=== PATIENT | male | born 1955 | race Caucasian/White ===

== ENCOUNTER 2017-11-17 11:57 | Outpatient (REF) | payer MEDICAID, SELFPAY ==
[2017-11-17 12:32] LABS: HCT 43.2 % (40.0-50.0); HGB 14.8 g/dL (13.5-17.5); Mean Corp. HGB Concentration 34.3 g/dL (32.0-36.0); Mean Corpuscular Hemoglobin 33.9 pg (27.0-33.0); Mean Corpuscular Volume 98.9 fL (80-95); Mean Platelet Volume 9.7 fL (8.0-11.0); Platelet Count 254 x1000/uL (130-400); RBC 4.37 m/cumm (4.50-6.00); RBC Distribution Width 12.9 % (11.8-14.1); White Blood Cell Count 5.21 k/cumm (4.4-10.8)
[2017-11-17 13:11] LABS: Anion Gap 7.7 mmol/L (3-11); BUN 16 mg/dL (7-18); CO2 26.3 mmol/L (21.0-32.0); CREATININE 0.88 mg/dL (0.70-1.30); Calcium 8.7 mg/dL (8.5-10.1); Chloride 102 mmol/L (98-107); Glucose 166 mg/dL (70-100); Potassium 4.2 mmol/L (3.5-5.1); Sodium 136 mmol/L (136-145)
== END 2017-11-17 12:17 ==
LOC: NCHCN 11:57
PROVIDERS: PCP Internal Medicine; Visit Provider Internal Medicine
DX: E11.9 Type 2 diabetes mellitus without complications (principal); I95.2 Hypotension due to drugs
CPT/HCPCS: 80048; 85027

== ENCOUNTER 2019-03-11 13:07 | Outpatient (REF) | payer MEDICAID, SELFPAY ==
[2019-03-11 22:18] LABS: Anion Gap 10.1 mmol/L (3-11); BUN 18 mg/dL (7-18); CO2 25.9 mmol/L (21.0-32.0); Chloride 104 mmol/L (98-107); Glucose 140 mg/dL (74-106); Potassium 4.6 mmol/L (3.5-5.1); Sodium 140 mmol/L (136-145); Uric Acid 6.2 mg/dL (3.5-7.2)
== END 2019-03-11 13:27 ==
LOC: NCHCN 13:07
PROVIDERS: PCP Internal Medicine; Visit Provider Internal Medicine
DX: E11.9 Type 2 diabetes mellitus without complications (principal); M10.9 Gout, unspecified; I47.1 Supraventricular tachycardia; I25.10 Atherosclerotic heart disease of native coronary artery without angina pectoris
CPT/HCPCS: 80048; 84550

== ENCOUNTER 2019-09-30 11:15 | Outpatient (REF) | payer MEDICARE, OTHER, MEDICAID, SELFPAY ==
[2019-09-30 21:19] LABS: Cholesterol 132 mg/dL (<200); Triglyceride 155 mg/dL (<150)
[2019-09-30 22:40] LABS: Calculated LDL 50 mg/dL (<100); HDL Cholesterol 51 mg/dL (40-60)
== END 2019-09-30 11:35 ==
LOC: NCHCN 11:15
PROVIDERS: PCP Internal Medicine; Visit Provider Internal Medicine
DX: E78.5 Hyperlipidemia, unspecified (principal)
CPT/HCPCS: 80061

== ENCOUNTER 2019-10-22 20:43 | Outpatient (REF) | payer MEDICARE, OTHER, MEDICAID, SELFPAY ==
[2019-10-22 21:18] LABS: Abs Immature Grans 0.02 10^3/uL (0.0-0.06); Absolute Basophil Count 0.03 10^3/uL (0.0-0.2); Absolute Eosinophil Count 0.14 10^3/uL (0.0-0.7); Absolute Lymphocyte Count 1.95 10^3/uL (1.2-3.4); Absolute Monocyte Count 0.89 10^3/uL (0.1-0.8); Absolute Neutrophil Count 4.07 10^3/uL (1.2-6.7); Basophils % 0.4; HCT 41.7 % (40.0-50.0); HGB 14.5 g/dL (13.5-17.5); Immature Grans % 0.3; Lymphocytes % 27.5; MCH 34.5 pg (27.0-33.0); MCHC 34.8 % (32.0-36.0); MCV 99.3 fL (80-95); MPV 10.1 fL (8.0-11.0); Monocytes % 12.5; Neutrophils % 57.3; Nucleated RBC 0 %; Platelet Count 270 10^3/uL (130-400); RDW 12.9 % (11.8-14.1); RDW-SD 46.8 fL
[2019-10-22 21:21] LABS: ALT 80 U/L (16-63); AST 36 U/L (15-37); Albumin 3.8 g/dL (3.4-5.0); Alkaline Phosphatase 77 U/L (46-116); Anion Gap 11.4 mmol/L (3-11); BUN 14 mg/dL (7-18); Bilirubin, Total 0.5 mg/dL (0.2-1.0); CO2 25.6 mmol/L (21.0-32.0); Calcium 9.3 mg/dL (8.5-10.1); Chloride 104 mmol/L (98-107); Creatine Kinase 134 U/L (39-308); Glucose 150 mg/dL (74-106); Potassium 4.1 mmol/L (3.5-5.1); Sodium 141 mmol/L (136-145); Total Protein 7.3 g/dL (6.4-8.2)
[2019-10-22 21:58] LABS: ESR 22 mm/hr (1-20)
[2019-10-24 15:10] LABS: ANA Interpretation Positive (Negative); ANA Titer Pattern 1:80 Homogeneous
== END 2019-10-22 21:03 ==
LOC: NCHCN 20:43
PROVIDERS: PCP Internal Medicine; Visit Provider Internal Medicine
DX: M79.604 Pain in right leg (principal); M79.605 Pain in left leg; M99.06 Segmental and somatic dysfunction of lower extremity; L98.9 Disorder of the skin and subcutaneous tissue, unspecified
CPT/HCPCS: 80053; 82550; 85652; 85025; 86038

== ENCOUNTER 2019-12-12 02:11 | Outpatient (CLI) | payer MEDICARE, OTHER, MEDICAID, SELFPAY ==
--- NOTE | 2019-12-12 14:27 | DI.CT_ITS ---
EXAM: CT LUMBAR SPINE WO CLINICAL HISTORY: RT LEG PAIN, M79.604, NEUROGENIC CLAUDICATION DUE TO SPINAL STENOSIS, M48.062. TECHNIQUE: Imaging Protocol: Axial computed tomography images with coronal and sagittal reformatted images were created and reviewed CONTRAST MATERIAL: Noncontrast COMPARISON: No exams were available for comparison FINDINGS: Bones: The last intervertebral disc space is designated the L5/S1 level for the numbering purpose of this examination. The vertebral body heights are well maintained. No fracture is seen. There are pr ominent degenerative disc changes, greatest on the left side at L2-3 and L3-4 where there are promine nt bridging osteophytes. There is asymmetric disc space narrowing eccentric toward the left at these levels. There is asymmetric disc space narrowing eccentric toward the right at L4-5. T12-L1: No disc herniations or bulges are present. L1-2: No disc herniations or bulges are present. L2-3: Severe left neural foraminal and lateral recess narrowing secondary to prominent osteophytes. No significant central canal stenosis. No evidence of disc herniation. L3-4: Moderate left neural foraminal narrowing. No significant central canal stenosis. L4-5: Severe right neural foraminal narrowing and lateral recess narrowing. Moderate left neural fo raminal narrowing. Posteriorly projecting osteophyte contributes to mild degree of central canal keren nosis. Facet degenerative changes are also present, contributing to the neural foraminal narrowing. L5-S1: Small disc osteophytes. Facet degenerative changes. Mild bilateral neural foraminal narrowi ng. Soft Tissues: The visualized SI joints and sacrum are will maintained. The paraspinal soft tissues a re unremarkable. Sigmoid diverticulosis is noted. There are atherosclerotic changes of the aorta an d iliac arteries but no evidence of an aneurysm. IMPRESSION: Multilevel prominent degenerative changes, greatest from L2-3 through L4-5, causing neural foraminal narrowing. Mild central canal stenosis is present at L4-5 secondary to a combination of degenerative changes. RADIATION DOSE DELIVERED: 821.21mGy.cm Total DLP DATA REPOSITORY: All CT scans at this facility are submitted to the National Radiology Data Registry (NRDR) Dose Index Registry (DIR) with the [employer] (ACR). RADIATION OPTIMIZATION: All CT scans at this facility use at least one of these dose optimization te chniques: automated exposure control; mA and/or kV adjustment per patient size (includes targeted exa ms where dose is matched to clinical indication); or iterative reconstruction.
== END 2019-12-12 02:31 ==
PROVIDERS: PCP Internal Medicine; Visit Provider Internal Medicine
DX: M79.604 Pain in right leg (principal); M48.062 Spinal stenosis, lumbar region with neurogenic claudication; M47.816 Spondylosis without myelopathy or radiculopathy, lumbar region
CPT/HCPCS: 72131

== ENCOUNTER 2020-06-24 11:26 | Outpatient (CLI) | payer MEDICARE, OTHER, MEDICAID, SELFPAY ==
--- NOTE | 2020-06-24 | DI.RAD_ITS ---
Exam(s) XR TIB/FIB RT EXAM: XR TIB/FIB RT CLINICAL HISTORY: PAIN, R/O METALLIC SHRAPNEL OR SPACE-OCCUPYING LESION. TECHNIQUE: 2D digital imaging was performed. COMPARISON: No exams were available for comparison FINDINGS: BONES: No acute fracture is present. No bony destructive lesion is seen. Visualized portion of knee a nd ankle joints are unremarkable. SOFT TISSUE: Surgical clips are seen posterior to the knee. Atherosclerosis. No other radiopaque fo reign bodies are seen in the soft tissues. IMPRESSION: Surgical clips posterior to the knee. No other radiopaque foreign bodies are identified. DATA REPOSITORY: RADIATION DOSE DELIVERED:
--- NOTE | 2020-06-24 | DI.RAD_ITS ---
Exam(s) XR KNEE RT 3V AP,LAT,MEAGAN EXAM: XR KNEE RT 3V AP,LAT,MEAGAN CLINICAL HISTORY: PAIN, R/O METALLIC SHRAPNEL OR SPACE-OCCUPYING LESION. TECHNIQUE: 2D digital imaging was performed. COMPARISON: CR CHEST 2 VIEWS PA,LAT from 05/20/2011 FINDINGS: Moderately severe degenerative changes are seen in the right knee with joint space narrowing and mynor articular spurring. The findings are most marked in the medial femoral tibial and patellofemoral ana cristina nts. The bones are intact and normally mineralized. No joint effusion is seen vascular calcificatio ns are present surgical clips are seen in the posterior medial knee. IMPRESSION: Moderately severe osteoarthritis. DATA REPOSITORY: RADIATION DOSE DELIVERED:
== END 2020-06-24 11:46 ==
PROVIDERS: PCP Internal Medicine; Visit Provider General Practice
DX: M79.604 Pain in right leg (principal); M25.561 Pain in right knee; M17.11 Unilateral primary osteoarthritis, right knee
CPT/HCPCS: 73562; 73590

== ENCOUNTER → 2020-08-12 09:16 | Outpatient (BNVA) | payer MEDICARE, OTHER, MEDICAID, SELFPAY | PROVIDERS: PCP Internal Medicine; Visit Provider Student in an Organized Health Care Education/Training Program | DX: S86.111A Strain of other muscle(s) and tendon(s) of posterior muscle group at lower leg level, right leg, initial encounter (principal); X58.XXXA Exposure to other specified factors, initial encounter; M17.11 Unilateral primary osteoarthritis, right knee | CPT/HCPCS: 99203 ==

== ENCOUNTER → 2020-10-06 10:55 | Outpatient (BNVA) | payer MEDICARE, OTHER, MEDICAID, SELFPAY | PROVIDERS: PCP Internal Medicine; Referring Provider Internal Medicine; Visit Provider Student in an Organized Health Care Education/Training Program | DX: M17.11 Unilateral primary osteoarthritis, right knee (principal); G57.31 Lesion of lateral popliteal nerve, right lower limb; I10 Essential (primary) hypertension; E11.9 Type 2 diabetes mellitus without complications | CPT/HCPCS: 99214 ==

== ENCOUNTER 2020-11-10 19:25 | Outpatient (REF) | payer MEDICARE, OTHER, MEDICAID, SELFPAY ==
[2020-11-10 22:02] LABS: Anion Gap 13.1 mmol/L (3-11); BUN 14 mg/dL (7-18); CO2 22.9 mmol/L (21.0-32.0); CREATININE 0.8 mg/dL (0.70-1.30); Calcium 8.9 mg/dL (8.5-10.1); Chloride 104 mmol/L (98-107); Glucose 183 mg/dL (74-106); Sodium 140 mmol/L (136-145)
== END 2020-11-10 19:26 | disposition home or self-care (01) ==
LOC: NCHCN 19:25
PROVIDERS: PCP Internal Medicine; Referring Provider Internal Medicine; Visit Provider Internal Medicine
DX: E11.9 Type 2 diabetes mellitus without complications (principal); I25.10 Atherosclerotic heart disease of native coronary artery without angina pectoris; M79.661 Pain in right lower leg; M10.9 Gout, unspecified; I73.9 Peripheral vascular disease, unspecified; Z95.0 Presence of cardiac pacemaker; Z86.010 Personal history of colon polyps
CPT/HCPCS: 80048

== ENCOUNTER → 2021-08-06 09:51 | Outpatient (BNVA) | payer MEDICARE, OTHER, MEDICAID, SELFPAY | PROVIDERS: PCP Internal Medicine; Referring Provider Internal Medicine; Visit Provider Physical Therapy Assistant | DX: Z80.0 Family history of malignant neoplasm of digestive organs (principal); Z12.11 Encounter for screening for malignant neoplasm of colon ==

== ENCOUNTER 2021-09-28 08:14 | Day surgery (SDC) | payer MEDICARE, OTHER, MEDICAID, SELFPAY ==
--- NOTE | 2021-09-27 16:15 | HPE_ITS ---
Assessment and Plan Assessment and plan (1) Family history of colon cancer: Status: Acute Assessment and plan: Informed consent is obtained for the procedural (explained in simple layman's terms that the pt. and/or family could understand) explaining risks vs benefits and alternatives to the procedure and consequences if we do not do the procedure and need/rational for the procedure. Risks include but are not limited to: bleeding, infection, perforation of esophagus, stomach, colon, small intestines, bronchus or trachea, or PTX. This would necessitate emergency surgery to repair the damage w/ possible ostomy; and other associated complications w/ the required surgery. Also complications of anesthesia including aspiration, MD/CVA/. (2) Screening for colon cancer: Status: Acute History of Present Illness Narrative: Assessment & Plan (1) Encounter for screening colonoscopy: The patient is here for Colonoscopy pre-op.?His last screening was in 2014, which was unremarkable. He has a family history of colon cancer in his father whom at the age of 67..?He has not had any bowel habit changes. -Discussed colonoscopy bowel prep as well as the procedure. Discussed possible complications of the procedure to include bleeding, pain, perforation, missed small lesion/polyp, sore throat, aspiration and adverse reaction to the medications. Questions were answered to patient?s satisfaction. No guarantees were implied or given. Patient[place] follow [place] [facility] [place], it is noted that his aortic valve is now moderately stenosed. They plan for TTE in 4-6 months to re-evaluate the valve. Echo: 01/2020- LVH, EF 60%. NmL RV Bioprosthetic aortic prosthesis mean gradient is 17mmHg. No regurg. Nuclear Stress Test 04/2021 No ischemia or scar, LV function was nml. Will send a note to anesthesia, to ensure okay to proceed with [place] given Cardiology recommendations of follow up on 05/11. Patient will hold: ASA and VItamin D x 5 days prior Metformin the evening prior and the morning of HPI 66 y/o male with history of CAD, s/p CABG (2008) , AVR (2008) and pace maker placement (2011; sick sinus syndrome), DM type 2, and PVD presents for colonoscopy screening pre-op. His last screening was in 2014, which was unremar kable. He has a family history of colon cancer in his father whom at the age of 67.. He denies any changes in bowel habits including bloody or black tarry stools, abdominal pain, diarrhea or constipation. He denies constitutional symptoms. Denies use of marijuana or any other recreational or illegal drugs. He denies chest pain, palpitations, dyspnea or dyspnea with exertion.? 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 He denies prior history or family history of adverse reactions or complications with anesthesia. The patient denies any history of stroke, MD, seizures, bleeding or clotting disorders.? Patient has implanted metal in his right lower leg and also has a pacemaker. Patient is here today for colon cancer screening. His father from colon cancer at age 67. Today: Patient completed a bowel prep last p.m. and the resulting effluent today is just a clear yellow. He currently is not having any abdominal pain or nausea. He feels bloated. He denies any chest pain/chest pressure, shortness of breath, productive cough, or fevers. He has held his aspirin. Since he saw [facility] in July, he has had no changes in his health status or change in his medications. Please see cardiology notes in epic. All questions are answered and patient is stable for the proposed procedure today. Pt did have a pacer interrigation and everything is functioning normally. PFSH All Active Problems Family history of colon cancer (Acute) Screening for colon cancer (Acute) Medical History Adenomatous colon polyp Bee sting allergy CAD (coronary artery disease) Diabetes Entrapment of common peroneal nerve Gout History of tobacco abuse Hx of myocardial infarction 2008 Hyperlipidemia Obesity Peripheral arterial disease Primary osteoarthritis of right knee PSVT (paroxysmal supraventricular tachycardia) Right calf pain Sick sinus syndrome Strain of right gastrocnemius muscle Type 2 diabetes mellitus Surgical History (Updated 09/28/21 @ 08:34 by Tomeka Vincent RN) History of open heart surgery S/P AVR 2009 Social History Smoking/Tobacco Use Status: Former Tobacco Use Quit Date: 02/20/06 Smoking risk assessment performed?: Yes Alcohol Intake: current Alcohol Intake frequency: a few times a week Drug use: Never Substance use type: does not use Current gender identity: male Do you feel safe at home: Yes Do you feel safe in your relationship?: Yes Meds Allergies and Home Medications Allergies Allergy/AdvReac Type Severity Reaction Status Date / Time venom-honey bee Allergy Intermediate Anaphylaxsi Unverified 09/28/21 08:35 [bee venom (honey bee)] s adhesive tape AdvReac Intermediate Infection Verified 09/28/21 08:35 prednisone AdvReac Intermediate Causes Verified 09/28/21 08:35 sugar spikes Home Medications Medication Instructions Recorded Confirmed Type Aspirin Low-Strength 81 mg 81 mg PO DAILY 09/27/12 09/28/21 History chewable tablet (aspirin) atorvastatin 40 mg tablet 40 mg PO DAILY 09/27/12 09/28/21 History allopurinol 100 mg tablet 200 mg PO DAILY 03/19/19 09/28/21 History amoxicillin 500 mg capsule 2,000 mg PO ONCE 03/19/19 09/28/21 History ketoconazole 2 % topical cream 1 applic topical BID 03/19/19 09/28/21 History blood sugar diagnostic #10 ea 08/12/20 09/27/21 History cholecalciferol (vitamin D3) 250 250 mcg PO DAILY 08/12/20 09/28/21 History mcg (10,000 unit) tablet lancets #100 ea 08/12/20 09/27/21 History metformin 500 mg tablet,extended 1,500 mg PO DAILY 08/12/20 09/28/21 History release 24 hr metoprolol succinate 100 mg 150 mg PO DAILY 08/12/20 09/28/21 History tablet,extended release 24 hr Exam Const Other: PHYSICAL EXAM GENERAL APPEARANCE: Alert, healthy appearance, oriented, in no acute distress SKIN: No rashes.? No breakdown HYDRATION: Well hydrated NECK: Supple, Trachea midline. No JVD. LUNGS: normal respiration/nl chest excursion. ?Clear to auscultation B/l no R/R/W ?HEART: Regular rate and rhythm, ABDOMEN: non tender to palpation, no masses or distention, no hernias. Normal bowel sounds
--- NOTE | 2021-09-27 16:20 | PDOC.DSDIS_ITS ---
Discharge Plan Disposition Patient Disposition: HOME Condition: Good Discharge Details Reason For Visit: Colon scope for colon cancer screening Attending Provider: Margarita Montilla Primary Care Provider: Low Durham Meds and New Rx's Prescriptions: Continued cholecalciferol (vitamin D3) 250 mcg (10,000 unit) tablet 250 mcg PO DAILY (DME) blood sugar diagnostic Strip See Rx Instructions .ROUTE .MEDSUPPLY Qty: 10 Rx Instructions: As directed (DME) lancets Misc See Rx Instructions .ROUTE .MEDSUPPLY Qty: 100 Rx Instructions: As directed atorvastatin 40 MG tablet 40 mg PO DAILY aspirin [Aspirin Low-Strength] 81 MG tablet,chewable 81 mg PO DAILY allopurinol 100 mg tablet 200 mg PO DAILY ketoconazole 2 % cream 1 applic TP BID amoxicillin 500 mg capsule 2,000 mg PO ONCE Rx Instructions: take 4 tablets 1 hour prior to dental procedures metoprolol succinate 100 mg tablet extended release 24 hr 150 mg PO DAILY metformin 500 mg tablet extended release 24 hr 1,500 mg PO DAILY Discontinued bisacodyl [Dulcolax (bisacodyl)] 5 mg tablet,delayed release (DR/EC) 5 mg PO ONCE Qty: 4 0RF Rx Instructions: Take according to provider's instructions for colonoscopy prep. polyethylene glycol 3350 17 gram/dose powder 17 g PO ONCE Qty: 238 0RF Rx Instructions: To be taken as directed by prescriber's office for colonoscopy prep. Discharge Instructions Additional Instructions: DSU Colonoscopy Post- Op Instructions Instructions for Everyone who is given Anesthesia: For your safety, please do the following for the next twenty-four (24) hours: *Do Not operate a motor vehicle (car, truck, motorcycle, etc.) *Do Not drink alcoholic beverages or use any recreational drugs for the first 24 hours or while taking pain medications. The medications in your body may have a reaction that can be dangerous. *Do Not make any important decisions or sign any important papers. Findings: Minor diverticular x2 polyps Follow up: My office will send a letter in 2 to 3 weeks time detailing as to what type of polyps they are and when we want you to repeat the colonoscopy. 1. No lifting over 20 pounds or strenuous activity for the first 24 hours after your procedure. After 24 hours there are no restrictions on your activity but you may feel fatigued for a few days. 2. After you arrive home you may have a light meal and return to your normal diet as you can tolerate it without feeling sick to your stomach. 3. You may have a bloated, gaseous feeling in your belly (abdomen) after a colonoscopy. Passing gas and belching will help. Walking or lying down on your left side with your knees flexed may relieve the discomfort. Call the office at [phone] (Office) or [phone] (Hospital) right away if you notice any of the following: a.Vomiting of blood or ?coffee ground stools?. b.Rectal bleeding 1Tbsp, blood clots or continuous bleeding. c.Severe belly (abdominal) pain. d.A hard distended belly (abdomen) and an inability to pass gas. 4. Please don?t expect to have a normal BM (bowel movement) for 2-3 days after your procedure. 5. If there are questions regarding the findings of your procedure, please contact your doctor 6. If you are unable to contact your doctor with a problem, contact the hospital at [phone]. 7. Continue all your regular medications unless directed otherwise. I understand the above instructions and have no questions. Signature of Patient or Adult Escort Name of Responsible Adult Escort Signature of Nurse Date/Time Activity:: See above Diet:: See above Discharge Orders Discharge Orders: Discharge Order (Routine); Ordered 09/27/21 Ordered By: Margarita Montilla DS: Diagnosis Discharge Diagnosis (1) Family history of colon cancer: Status: Acute (2) Screening for colon cancer: Status: Acute
--- NOTE | 2021-09-27 16:20 | W.PM.OP ---
Operative Note Operative Note Refer to Anesthesia Record
--- NOTE | 2021-09-27 16:22 | COLE_ITS ---
Colonoscopy Report Date of procedure: 09/28/21 Pre-op diagnosis general: Family history of colon cancer in a first-degree relat patrick Post-op diagnosis procedure note: other (Polyps and diverticula) Surgeon: Margarita Montilla Anesthesia Type: General:No Airway Estimated blood loss (mL): 1 Pathology: other Complications: None Disposition: same day Prep: Miralax/Dulcolax Retraction Time: 9 Procedure Description: After informed consent was obtained the patient was taken to the procedure room and placed in a left decubitous position. Monitors were applied and a time out was done. The patients name, date of , procedure, allergies to medications and metal in their body was reviewed. The patient was then sedated. Once sedated and comfortable a rectal exam was done. External exam was normal. Internal exam revealed a normal sphincter tone and no palpable masses. The p rostate mildly enlarged right lobe. The scope was then introduced and retrofelexed. No internal hemorrhoids were identified. The scope was then advanced to the cecum difficulty. The TI and appendiceal orifice were identified. The prep was BB PS 3 in all segments for a total of 9.. The scope was then slowly retracted over 9 minutes back into the rectum. He has minor diverticular disease confined to the sigmoid colon with no signs of active bleeding or infection. The mucosa is pink and healthy with a normal vascular pattern. He had x2 polyps at 40 cm they are both flat 5 mm polyps. They are both removed with cold biting forcep. All specimen is retrieved and no bleeding is noted.. The scope was removed and the patient was woken up and taken back to Same day surgery in stable condition. The patient tolerated the procedure well and there were no immediate complications. Follow up: The patient should follow up in 5 years unless they develop changes in bowel habits or other new gastrointestinal complaints.
[2021-09-28 08:25] VITALS: BP 131/88; PULSE 65; RESP 17; TEMP 36.5; O2SAT 98
[2021-09-28] MEDS: Lactated Ringers 1,000 ML 80 ML IV (08:46)
--- NOTE | 2021-09-28 09:42 | W.ANESPRE ---
General Info Date of Service Date Performed: 09/28/21 Height: 5 ft 11 in Weight: 92.9 kg Body Mass Index (BMI): 28.5 Surgical Procedure: Operation Date: 09/28/21 10:05 Proposed Procedure Side Surgeon cindy Montilla, Meds Allergies and Home Medications Allergies Allergy/AdvReac Type Severity Reaction Status Date / Time venom-honey bee Allergy Intermediate Anaphylaxsi Unverified 09/28/21 08:35 [bee venom (honey bee)] s adhesive tape AdvReac Intermediate Infection Verified 09/28/21 08:35 prednisone AdvReac Intermediate Causes Verified 09/28/21 08:35 sugar spikes Home Medication Medication Instructions Recorded Aspirin Low-Strength 81 mg 81 mg PO DAILY 09/27/12 chewable tablet (aspirin) atorvastatin 40 mg tablet 40 mg PO DAILY 09/27/12 allopurinol 100 mg tablet 200 mg PO DAILY 03/19/19 amoxicillin 500 mg capsule 2,000 mg PO ONCE 03/19/19 ketoconazole 2 % topical cream 1 applic topical BID 03/19/19 blood sugar diagnostic #10 ea 08/12/20 cholecalciferol (vitamin D3) 250 250 mcg PO DAILY 08/12/20 mcg (10,000 unit) tablet lancets #100 ea 08/12/20 metformin 500 mg tablet,extended 1,500 mg PO DAILY 08/12/20 release 24 hr metoprolol succinate 100 mg 150 mg PO DAILY 08/12/20 tablet,extended release 24 hr Current Visit Medications: Current Medications Generic Name Dose Route Start Last Admin Trade Name Freq PRN Reason Stop Dose Admin Hyoscyamine Sulfate 0.125 mg 09/27/21 16:20 Hyoscyamine 0.125 Mg Sl/Oral/Chew SL DIRECTED PRN Ringer's Solution 1,000 mls @ 80 mls/hr 09/28/21 06:00 09/28/21 08:46 IV 09/28/21 23:59 80 mls/hr INFUSION LIBAN Administration IV Miscellaneous Supplies 1 each 09/28/21 06:00 Iv Access IV 09/28/21 23:59 DIRECTED LIBAN Ondansetron HCl 4 mg 09/27/21 16:20 Ondansetron 4 Mg/2 Ml Vial IVP Q4H PRN PRN Nausea / Vomiting Sodium Chloride 0 ml 09/28/21 06:00 Normal Saline Flush 10 Ml Syr IV 09/28/21 23:59 PRN PRN Sodium Chloride 0 ml 09/28/21 06:00 Normal Saline 10 Ml Vial IJ 09/28/21 23:59 DIRECTED PRN Sterile Water 0 ml 09/28/21 06:00 Water,Injection,Sterile 10 Ml Vial IJ 09/28/21 23:59 DIRECTED PRN PFSH Active Problems Active Problems: Problem Status Onset Code Family history of colon cancer Z80.0 Screening for colon cancer Z12.11 Medical History Medical History Adenomatous colon polyp Bee sting allergy CAD (coronary artery disease) Diabetes Entrapment of common peroneal nerve Gout History of tobacco abuse Hx of myocardial infarction 2009 Hyperlipidemia Obesity Peripheral arterial disease Primary osteoarthritis of right knee PSVT (paroxysmal supraventricular tachycardia) Right calf pain Sick sinus syndrome Strain of right gastrocnemius muscle Type 2 diabetes mellitus Surgical History Surgical History (Updated 09/28/21 @ 08:34 by Tomeka Vincent RN) History of open heart surgery S/P AVR 2009 Tobacco Smoking/Tobacco Use Status: Former Tobacco Use Alcohol Alcohol Intake: current Alcohol intake frequency: a few times a week Substance Use Substance use: Never Substance use type: does not use Vital Signs and Lab Results Vital Signs Most Recent Vital Signs in EMR: Most Recent Vital Signs Temp Pulse Resp BP Pulse Ox 36.5 C 65 17 131/88 98 09/28/21 08:25 09/28/21 08:25 09/28/21 08:25 09/28/21 08:25 09/28/21 08:25 Point of Care Results Point of Care Results: Finger Stick Blood Glucose 158 09/28/21 08:53 Lab Results Blood Type / Crossmatch: No Data to Display Complete Blood Count: No Data to Display Complete Metabolic Panel: No Data to Display Liver Function Panel: No Data to Display Coagulation Panel: No Data to Display Cardiac Panel: No Data to Display Arterial Blood Gas: No Data to Display Venous Blood Gas: No Data to Display Pancreas Panel: No Data to Display Thyroid Panel: No Data to Display Infectious Disease: No Data to Display Blood Cultures: No Data to Display Toxicology Panel: No Data to Display Anesthesia Assessment and Plan Anesthesia History Personal History: No History of Anesthesia Complications Family History: No Family History of Anesthesia Complications Exercise Tolerance Exercise Tolerance: Metabolic Equivalents>4 Pertinent Negatives Pertinent Negatives: No Symptoms of GERD, No Major Cardiovascular Symptoms or Complaints ([place] 2009 CABG X 3 Aortic valve replacement (bovine), pacemaker Medtronic ) and No History of CVA/TIA Cardiac & Pulmonary Exam Cardiac Exam: Normal S1/S2 Heart Sounds Pulmonary Exam: Clear Bilateral Breath Sounds Implantable Cardiac Device Does patient have a Pacemaker or an ICD?: Yes 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[employer] Reason for Placement:: irregualirity and pauses of HR Date of Last Device Interrogation:: 3 weeks ago per pt Airway Exam Known Difficult Airway: No Mallampati Class: 2 Mouth Opening: Normal (> 3cm) Thyromental Distance: Greater than 3 cm Neck Range of Motion: Full ROM Neck Circumference: Thick Teeth Condition: Removable Dentures/Plates Upper (At home ) and Edentulous (TOP) Airway Comments: Edentulous top ( denture at home), bottom teeth solid, not chipped or broken ASA Classification ASA Score: ASA 2 Emergency Case?: No NPO Status NPO Status: NPO Clears >2 hours, Solids >8 hours Anesthesia Plan Resuscitation Status: Full Code Anesthesia Technique: General Anesthesia Airway Planned: Natural Airway Monitors Used: Standard Monitors
[2021-09-28 09:46] VITALS: BMI 28.5
--- NOTE | 2021-09-28 10:37 | BOWEL_PTH ---
PATIENT: Anatoliy Fuentes LOC: [facility] U#:[id number] AGE/SX: 66/M ROOM: RE09/28/[address]: Margarita Montilla : 1955 BED: DIS: 09/28/2021 SPEC #: [id number] RECD: 09/28/21 13:06 STATUS: NADIA RE #: [id number] EDUARDO: 09/28/21 10:[address]: Margarita Montilla DEPT: Surgical Specimen RECD BY: Olivia Alba ENTERED: 09/28/21 13:07 SP TYPE: Bowel OTHR DR: Low Durham Tissues: 1 - BIOPSY BOWEL Procedures: GROSS AND MICRO LEVEL 4 Comments: [id number]
[2021-09-28 10:48] VITALS: BP 96/65; PULSE 65; RESP 16; TEMP 36.5; O2SAT 95
[2021-09-28 11:08] VITALS: BP 111/68; PULSE 65; RESP 18; TEMP 36.6; O2SAT 94
--- NOTE | 2021-09-28 11:29 | W.ANESPOSTOP ---
Postoperative Evaluation Date, Time and Location Date Performed: 09/28/21 Time Performed: 11:08 Patient Location: Day Surgery Unit Vital Signs Most Recent Imported Vital Signs: Most Recent Vital Signs Temp Pulse Resp BP Pulse Ox 36.6 C 65 18 111/68 94 09/28/21 11:08 09/28/21 11:08 09/28/21 11:08 09/28/21 11:08 09/28/21 11:08 Pain Score Most Recent Pain Score: Most Recent Pain Score Pain Level 0 09/28/21 11:08 Assessment Mental Status: Awake (Alert & Oriented to Patient Baseline) Airway and Respiratory Function: Patent airway with normal (patient baseline) respiratory exam Cardiovascular Function: Hemodynamically Stable Hydration Status: Adequately Hydrated Nausea & Vomiting: No Nausea or Vomiting Pain: Pt. Denies Any Pain Peripheral Nerve Block: Patient did not receive a nerve block
== END 2021-09-28 11:42 | disposition home or self-care (01) ==
PROVIDERS: PCP Internal Medicine; Visit Provider Surgery
PROC: 0DJD8ZZ Inspection of Lower Intestinal Tract, Via Natural or Artificial Opening Endoscopic (ICD-10-PCS; CPT 45378; principal; 2021-09-28 10:00)
DX: Z12.11 Encounter for screening for malignant neoplasm of colon (principal); K63.5 Polyp of colon; Z80.0 Family history of malignant neoplasm of digestive organs; K57.30 Diverticulosis of large intestine without perforation or abscess without bleeding; E11.9 Type 2 diabetes mellitus without complications; I25.10 Atherosclerotic heart disease of native coronary artery without angina pectoris; Z95.1 Presence of aortocoronary bypass graft; I49.5 Sick sinus syndrome; Z95.0 Presence of cardiac pacemaker
CPT/HCPCS: 45380; 88305; J3490

== ENCOUNTER 2022-02-07 14:49 | Outpatient (REF) | payer MEDICARE, OTHER, MEDICAID, SELFPAY ==
[2022-02-07 15:18] LABS: Anion Gap 8.2 mmol/L (3-11); BUN 12 mg/dL (7-18); CO2 28.8 mmol/L (21.0-32.0); CREATININE 0.7 mg/dL (0.70-1.30); Calcium 9.5 mg/dL (8.5-10.1); Chloride 102 mmol/L (98-107); Estimated GFR 100.37 (mL/min/1.73m2); Glucose 102 mg/dL (74-106); Potassium 4.4 mmol/L (3.5-5.1); Sodium 139 mmol/L (136-145)
[2022-02-07 16:50] LABS: COMMENT (LAB VIEW ONLY) 67.03 mg/dL; Microalb ug/mg Crea 30.4 ug/mg Cr
== END 2022-02-07 14:50 | disposition home or self-care (01) ==
LOC: NCHCN 14:49
PROVIDERS: PCP Internal Medicine; Visit Provider Family Medicine
DX: I25.10 Atherosclerotic heart disease of native coronary artery without angina pectoris (principal); E11.9 Type 2 diabetes mellitus without complications
CPT/HCPCS: 80048; 82043; 82570

== ENCOUNTER → 2022-03-09 08:55 | Outpatient (BNVA) | payer MEDICARE, OTHER, MEDICAID, SELFPAY | PROVIDERS: PCP Internal Medicine; Referring Provider Internal Medicine; Visit Provider Physician Assistant | DX: Z95.0 Presence of cardiac pacemaker (principal); I49.5 Sick sinus syndrome | CPT/HCPCS: 93280; 99213 ==

== ENCOUNTER 2022-09-07 08:07 | Outpatient (CLI) | payer MEDICARE, OTHER, MEDICAID, SELFPAY ==
--- NOTE | 2022-09-07 08:00 | RT.EKG_ITS ---
APPROVED REPORT Exam: Resting ECG Reason for Exam: cardiac evaluation Patient Location: O HR:68 bpm ECG Measurements Heart Rate 68 AXIS OH 78 P [id number] QRSd 93 QRS -21 QT 406 T -35 QTc 432 Conclusion Atrial-paced complexes...other complexes also detected Borderline left axis deviation...QRS axis (-15,-29) Nonspecific repol abnormality, diffuse leads...ST dep, T flat/neg, ant/lat/inf Baseline wander in lead(s) V5,V6 I have reviewed and I agree with the emergency room physician's ECG interpretation.
== END 2022-09-07 08:08 | disposition home or self-care (01) ==
LOC: DI.CARD 08:07
PROVIDERS: PCP Internal Medicine; Visit Provider Physician Assistant
DX: I25.10 Atherosclerotic heart disease of native coronary artery without angina pectoris (principal); I49.5 Sick sinus syndrome; Z13.6 Encounter for screening for cardiovascular disorders
CPT/HCPCS: 93010

== ENCOUNTER → 2022-09-07 09:35 | Outpatient (BNVA) | payer MEDICARE, OTHER, MEDICAID, SELFPAY | PROVIDERS: PCP Internal Medicine; Referring Provider Internal Medicine; Visit Provider Physician Assistant | DX: Z45.010 Encounter for checking and testing of cardiac pacemaker pulse generator [battery] (principal); R42 Dizziness and giddiness | CPT/HCPCS: 93005; 93280; 99213 ==

== ENCOUNTER → 2022-12-15 02:54 | Outpatient (CLI) | payer MEDICARE, OTHER, SELFPAY ==
--- NOTE | 2022-12-15 08:15 | DI.US_ITS ---
APPROVED REPORT EXAM: Comprehensive 2D, Doppler, and color-flow Echocardiogram Patient Location: Out-Patient Colon [facility] Rectal Surgeon: Salvador Brooke RDCS (AE) Indications: PVCs, f/u, CAD, h/o bioprosthetic aortic valve replacement 2008 Conclusion Normal left ventricular wall thickness and chamber size. Ejection fraction is 50 to 55%. There are no segmental wall motion abnormalities Normal right ventricular size and function Left atrium is mildly dilated. Right atrial size is normal Device lead is noted in the right heart There is a bioprosthetic aortic valve replacement with a mean gradient of 27 mmHg. There is no aorti c regurgitation. Valve leaflets appear thickened Mitral annular calcification with moderate central mitral regurgitation Dilated aortic root and ascending aorta Wall motion Left Ventricle The left ventricle is normal size. Left ventricular systolic function is borderline. There is normal left ventricular wall thickness. There are no segmental wall motion abnormalities There is no ventric ular septal defect visualized. LVEF is 50-55%. Right Ventricle The right ventricle is normal size. Right ventricular systolic function is grossly normal. Unable to assess PA pressure. Pacemaker lead is present in the right ventricle. Atria The left atrium size is mildly dilated Right atrium is normal The interatrial septum is intact with n o evidence for an atrial septal defect. Aortic Valve Bioprosthetic aortic valve is present. Leaflets appear thickened Highest mean aortic valve gradient i s 26.77 mmHg. Peak aortic valve gradient is 42.44 mmHg. Calculated BRANDAN by the continuity equation is 0.7 cm2. No aortic regurgitation is present. Mitral Valve Mild mitral annular calcification. No evidence of mitral valve stenosis. Moderate mitral regurgitatio n. Tricuspid Valve The tricuspid valve is normal in structure. There is no tricuspid valve stenosis. Trace tricuspid reg urgitation. Pulmonic Valve The pulmonary valve is normal in structure. There is no pulmonic valvular stenosis. Trace pulmonic re gurgitation. Great Vessels Aortic root is moderately dilated. The ascending aorta is mildly dilated. Aortic arch is normal in ca liber. IVC is normal in size and collapses >50% with inspiration. Pericardium There is no pericardial effusion. 2D Dimensions IVSD d PLAX 1.44 cm M: 0.6-1.2 Ao Root d 4.16 cm M: 3.1 - 3.7 LVPW d PLAX 1.37 cm M: 0.6 - 1.2 Ao Asc Diam d 3.62 cm M: 2.6 - 3.4 LVID d PLAX 4.72 cm M: 4.2 - 5.8 LVDs 3.50 cm M: 2.5 - 4.0 LV EF Teichholz 50.8 % FS 25.83 % LV EDV (Teich) 103.4 mL LV ESV (Teich) 50.9 mL Stroke Vol Index (Teich) 24.20 Auto EF LV EDV A4C 117.1 mL LV EDV A2C 127.3 mL LV EDV BP 122.3 mL LV ESV A4C 57.5 mL LV ESV A2C 57.8 mL LV ESV BP 57.5 mL LVEF(%) A4C 50.9 % LVEF(%) A2C 54.6 % LVEF(%) BP 53.0 % LV SV A4C 59.6 ml LV SV A2C 69.5 ml LV SV BP 64.8 ml LV CO A4C 3.6 L/min LV CO A2C 3.9 L/min LV CO BP 3.8 L/min HR A4C 59.90 BPM HR A2C 56.77 BPM LV EDV Index (BP) LA Volume LA Length A4C 6.7 cm LA Length A2C LA Area A4C s 24.76 cm2 LA Area A2C s LA Vol A4C A-L 77.94 mL LA Vol A2C A-L LA Vol Biplane A-L LA Vol A4C MOD 73.3 mL LA Vol A2C MOD LA Vol BP MOD RA Volume RA Area A4C 12.5 cm2 RA ESV A4C (A-L) 22.7mL RA Vol/BSA A4C A-L RA Length A4C 5.9 cm RA ESV A4C (MOD) 21.9mL LV Diastology MV E' medial 0.042 (>0.07 m/s) MV E Vmax 0.65 (0.4-1.3 m/s) MV E/E' MED 15.42 (<14) MV A Vmax 0.60 (0.4-1.3 m/s) MV E' lateral 0.062 (>0.1 m/s) E/A Ratio 1.1 MV E/E' LAT 10.50 (<14) MV E' Average 0.052 m/s MV E/E'(average) 12.50 Aortic Valve AoV Vmax 3.26 m/s LVOT Vmax 0.79 m/s AoV Peak Grad 42.4 mmHg LVOT Peak Grad 2.5 mmHg AoV Area (Vmax) 0.73 cm2 LVOT VTI 0.165 m AoV VTI 0.750 m LVOT Mean Grad 1.2 mmHg AoV Mean Chris. 2.53 m/s LVOT SV 49.24 mL AoV Mean Grad 26.8 mmHg LVOT Diam s 1.95 cm AoV Area (VTI) 0.66 cm2 Velocity Ratio 0.24 Mitral Valve MV DT 144 (160-240 msec) Pulmonary Valve PV Vmax 1.00 (0.5-1.5 m/s) RVOT Vmax 0.45 m/s PV Peak Grad 4.0 mmHg RVOT Peak Gr. 0.8 mmHg PV Mean Chris 0.57 m/s RVOT VTI 0.095 m PV Mean Grad 1.6 mmHg RVOT Mean Gr. 0.5 mmHg
== END ==
PROVIDERS: PCP Internal Medicine; Visit Provider Physician Assistant
DX: I25.10 Atherosclerotic heart disease of native coronary artery without angina pectoris (principal)
CPT/HCPCS: 93306

== ENCOUNTER 2023-02-08 14:50 | Outpatient (REF) | payer MEDICARE, OTHER, SELFPAY ==
[2023-02-08 15:31] LABS: HCT 42.4 % (40.0-50.0); HGB 14.6 g/dL (13.5-17.5); MCH 32.7 pg (27.0-33.0); MCHC 34.4 % (32.0-36.0); MCV 95 fL (80-95); MPV 9.9 fL (8.0-11.0); Platelet Count 253 10^3/uL (130-400); RBC 4.46 10^6/uL (4.36-5.78); RDW 12.5 % (11.8-14.1); RDW-SD 43.3 fL; WBC 6.72 10^3/uL (4.4-10.8)
[2023-02-08 16:11] LABS: ALT 64 U/L (16-63); AST 38 U/L (15-37); Albumin 3.9 g/dL (3.4-5.0); Alkaline Phosphatase 76 U/L (46-116); Anion Gap 8.9 mmol/L (3-11); BUN 10 mg/dL (7-18); Bilirubin, Total 0.8 mg/dL (0.2-1.0); CO2 28.1 mmol/L (21.0-32.0); CREATININE 0.9 mg/dL (0.70-1.30); Calcium 9.5 mg/dL (8.5-10.1); Chloride 102 mmol/L (98-107); Estimated GFR 92.45 (mL/min/1.73m2); Glucose 148 mg/dL (74-106); Potassium 4.3 mmol/L (3.5-5.1); Sodium 139 mmol/L (136-145); Total Protein 8.3 g/dL (6.4-8.2)
== END 2023-02-08 14:51 | disposition home or self-care (01) ==
LOC: NCHCN 14:50
PROVIDERS: PCP Internal Medicine; Visit Provider Family Medicine
DX: E11.9 Type 2 diabetes mellitus without complications (principal); I25.10 Atherosclerotic heart disease of native coronary artery without angina pectoris
CPT/HCPCS: 80053; 85027

== ENCOUNTER → 2023-03-08 09:44 | Outpatient (BNVA) | payer MEDICARE, OTHER, SELFPAY | PROVIDERS: PCP Internal Medicine; Visit Provider Physician Assistant | DX: Z95.0 Presence of cardiac pacemaker (principal); I49.5 Sick sinus syndrome; I25.10 Atherosclerotic heart disease of native coronary artery without angina pectoris; R42 Dizziness and giddiness | CPT/HCPCS: 93280 ==

== ENCOUNTER → 2023-09-06 09:43 | Outpatient (BNVA) | payer MEDICARE, OTHER, SELFPAY | PROVIDERS: PCP Internal Medicine; Referring Provider Internal Medicine; Visit Provider Physician Assistant | DX: Z95.810 Presence of automatic (implantable) cardiac defibrillator (principal); I49.5 Sick sinus syndrome | CPT/HCPCS: 93280 ==

== ENCOUNTER 2023-11-21 21:40 | Outpatient (REF) | payer MEDICARE, OTHER, SELFPAY ==
[2023-11-21 22:09] LABS: COMMENT (LAB VIEW ONLY) 137.62 mg/dL; Microalb ug/mg Crea 14.2 ug/mg Cr
== END 2023-11-21 21:41 | disposition home or self-care (01) ==
LOC: NCHCN 21:40
PROVIDERS: PCP Internal Medicine; Visit Provider Family Medicine
DX: E11.9 Type 2 diabetes mellitus without complications (principal)
CPT/HCPCS: 82043; 82570

== ENCOUNTER 2024-03-06 08:01 | Outpatient (CLI) | payer MEDICARE, OTHER, SELFPAY | END 2024-03-06 08:02 | disposition home or self-care (01) | LOC: DI.CARD 08:01 | PROVIDERS: PCP Internal Medicine; Visit Provider Student in an Organized Health Care Education/Training Program | CPT/HCPCS: 93010 ==

== ENCOUNTER → 2024-03-06 10:21 | Outpatient (BNVA) | payer MEDICARE, SELFPAY | PROVIDERS: PCP Internal Medicine; Visit Provider Student in an Organized Health Care Education/Training Program | DX: Z95.810 Presence of automatic (implantable) cardiac defibrillator (principal); I49.5 Sick sinus syndrome | CPT/HCPCS: 93280 ==

== ENCOUNTER 2024-05-21 18:35 | Outpatient (REF) | payer MEDICARE, SELFPAY ==
[2024-05-21 21:30] LABS: HCT 43.2 % (40.0-50.0); HGB 14.6 g/dL (13.5-17.5); MCH 33.1 pg (27.0-33.0); MCHC 33.8 % (32.0-36.0); MCV 98 fL (80-95); MPV 10.2 fL (8.0-11.0); Platelet Count 242 10^3/uL (130-400); RBC 4.41 10^6/uL (4.36-5.78); RDW 12.7 % (11.8-14.1); RDW-SD 45.8 fL; WBC 5.97 10^3/uL (4.4-10.8)
[2024-05-21 21:40] LABS: ALT 65 U/L (16-63); AST 36 U/L (15-37); Albumin 3.8 g/dL (3.4-5.0); Alkaline Phosphatase 88 U/L (46-116); Anion Gap 9.5 mmol/L (3-11); BUN 11 mg/dL (7-18); Bilirubin, Total 0.5 mg/dL (0.2-1.0); CO2 27.5 mmol/L (21.0-32.0); CREATININE 0.9 mg/dL (0.70-1.30); Calcium 9.2 mg/dL (8.5-10.1); Chloride 104 mmol/L (98-107); Estimated GFR 91.88 (mL/min/1.73m2); Glucose 133 mg/dL (74-106); Potassium 4.4 mmol/L (3.5-5.1); Sodium 141 mmol/L (136-145); Total Protein 7.8 g/dL (6.4-8.2)
== END 2024-05-21 18:36 | disposition home or self-care (01) ==
LOC: NCHCN 18:35
PROVIDERS: PCP Family Medicine; Visit Provider Family Medicine
DX: Z00.00 Encounter for general adult medical examination without abnormal findings (principal)
CPT/HCPCS: 80053; 85027

== ENCOUNTER 2024-06-03 11:23 | Outpatient (CLI) | payer MEDICARE, SELFPAY ==
--- NOTE | 2024-06-03 | DI.RAD_ITS ---
Exam(s) XR SHOULDER RT COMPLETE 2+V EXAM: XR SHOULDER RT COMPLETE 2+V CLINICAL HISTORY: M25.511 Pain in RT shoulder. TECHNIQUE: 2D digital imaging was performed. Five views. COMPARISON: No exams were available for comparison FINDINGS: BONES: No acute fracture is present. No bony destructive lesion is seen. JOINTS: No dislocation present. Moderate spurring at the AC joint. Mild spurring at the margin of t he glenoid. Glenohumeral joint space is maintained. SOFT TISSUE: There is calcification superior to the humeral head consistent with calcific tendinosis of the supraspinatus. There is also additional calcification noted adjacent to the lesser tuberosity , also consistent with calcific tendinosis. IMPRESSION: Mild degenerative changes and calcific tendinosis. DATA REPOSITORY: RADIATION DOSE DELIVERED:
== END 2024-06-03 11:43 ==
LOC: DI 11:27
PROVIDERS: PCP Family Medicine; Visit Provider Family Medicine
DX: M25.511 Pain in right shoulder (principal); M75.31 Calcific tendinitis of right shoulder
CPT/HCPCS: 73030

== ENCOUNTER 2024-10-01 08:26 | Observation (INO) | payer MEDICARE, SELFPAY ==
[2024-10-01] VITALS (38 sets, daily range): BP systolic 98–134; BP diastolic 55–81; PULSE 56–91; RESP 14–33; TEMP 36.4–37.4; O2SAT 90–97
--- NOTE | 2024-10-01 08:15 | RT.EKG_ITS ---
APPROVED REPORT Exam: Resting ECG Reason for Exam: CHEST PAIN Patient Location: E HR:82 bpm ECG Measurements Heart Rate 82 AXIS OK [id number] P [id number] QRSd 123 QRS -52 QT 364 T 122 QTc 425 Conclusion Narrow complex rhythm, rate 82 AV dissociation, regular P waves with irregular QRS rhythm IVCD New ST depression and inverted T waves in anterolateral leads, new from priors No STEMI
--- NOTE | 2024-10-01 08:30 | DI.RAD_ITS ---
Exam(s) XR CHEST 2V PA LATERAL EXAM: XR CHEST 2V PA LATERAL aortic valve prosthesis. Pacemaker. CLINICAL HISTORY: Chest pain TECHNIQUE: 2D digital imaging was performed. Two views. COMPARISON: CR LEFT RIBS TO INCLUDE CXR from 03/31/2013 FINDINGS: HEART: Normal size. Aorta: Not dilated. PULMONARY VASCULATURE: Normal. MEDIASTINUM: Unremarkable. LUNGS: Clear. PLEURAL SPACE: No pleural effusion or pneumothorax. BONE:Unremarkable for age. SOFT TISSUES: Unremarkable. IMPRESSION: No acute abnormality. DATA REPOSITORY: RADIATION DOSE DELIVERED:
--- NOTE | 2024-10-01 08:36 | W.ED.GENAD ---
Discharge Plan Disposition Patient Disposition: Admit to [facility] Condition: Stable Discharge Details Clinical Impression: COVID-19 Admit Date/Time: 10/01/24 10:37 Admit Provider: Ephraim Mendoza Attending Provider: Ephraim Mendoza Primary Care Provider: Leobardo Tan ED Provider: Jennifer Purcell Discharge Data Discharge Date/Time-TO BE ENTERED AT DEPARTURE: 10/01/24 11:58 HPI General Date/Time Provider Initiated Documentation: 10/01/24 08:27. Limitations to Documentation: no limitations. Information obtained by: patient and RN notes reviewed. History of Present Illness 69 year old M presents to the emergency department with the chief complaint of SOB, CP, sore throat, described as moderate and similar to prior episodes, Quality is described as burning (sore throat), and is localized to the chest (CP wtih radiation to the BUE with exertion). Patient started experiencing this day(s) (acute symptoms x 4 days, SOB with exertion x 1yr) and it has been intermittent. Immobilization improves symptom(s), Movement worsens symptoms . Patient notes chest pain, fever/chills (per tmax 102), loss of appetite, malaise and shortness of breath; denies cough, diaphoresis, headaches, nausea/vomiting, rash and syncope. Patient did receive the following treatments prior to arrival, none Related Data Home Medications ?Medication ?Instructions ?Recorded ?Confirmed Aspirin Low-Strength 81 mg 81 mg PO DAILY 09/27/12 10/01/24 chewable tablet (aspirin) atorvastatin 40 mg tablet 40 mg PO DAILY 09/27/12 10/01/24 allopurinol 100 mg tablet 200 mg PO DAILY 03/19/19 10/01/24 amoxicillin 500 mg capsule 2,000 mg PO PRN 03/19/19 10/01/24 blood sugar diagnostic #10 ea 08/12/20 10/01/24 lancets #100 ea 08/12/20 10/01/24 metoprolol succinate 100 mg 50 mg PO BID 03/08/23 10/01/24 tablet,extended release 24 hr metformin 500 mg tablet,extended 1,000 mg PO BID 09/06/23 10/01/24 release 24 hr Allergies Allergy/AdvReac Type Severity Reaction Status Date / Time venom-honey bee (bee venom Allergy Intermediate Anaphylaxsi Verified 10/01/24 08:35 (honey bee)) s adhesive tape AdvReac Intermediate Infection Verified 10/01/24 08:35 prednisone AdvReac Intermediate Causes Verified 10/01/24 08:35 sugar spikes General Stated Complaint: Chest Pain MADHAVI: 3 Review of Systems Constitutional Constitutional: Reports as per HPI, Denies chills and Denies headache(s) Eyes Eyes: Denies change in vision ENT Ears, Nose, Mouth, and Throat: Denies dizziness and Denies headache(s) Cardiovascular Cardiovascular: Reports as per HPI Respiratory Respiratory: Reports as per HPI, Denies chest congestion, Denies cough, Denies pain on inspiration and Denies pain with cough Gastrointestinal Gastrointestinal: Reports as per HPI, Denies abdominal pain, Denies diarrhea, Denies nausea and Denies vomiting Genitourinary Genitourinary: Denies system reviewed and no additional complaints, except as documented (denies change in urinary habits) Musculoskeletal Musculoskeletal: Reports as per HPI and Denies back pain Integumentary/Breasts Skin/Breast: Reports as per HPI and Denies rash Neurologic Neurologic: Reports as per HPI, Denies dizziness and Denies headache(s) Exam Const General: cooperative, healthy appearing, comfortable, no acute distress and well developed Nutritional Appearance: average body habitus and well nourished Orientation: alert, awake and oriented x3 HENMT Head: normal to inspection Ears: hearing grossly normal bilaterally Mouth: moist mucous membranes Chest Chest: normal inspection of the chest, normal palpation of entire chest wall and no crepitus Resp Effort & Inspection: normal respiratory effort, able to speak in complete sentences and no respiratory distress Auscultation: clear to auscultation bilaterally, no rales, no rhonchi and no wheezes Cardio Rate: regular rate Rhythm: regular rhythm Heart Sounds: click and murmur GI Inspection: normal to inspection, no edema and non-distended Palpation: soft, no guarding and nontender Back/Spine/Pelvis Back: no CVA tenderness Skin General skin exam: no rashes or lesions noted Trauma: no lacerations or abrasions Neuro General: patient alert, patient awake and patient oriented x3 Cognition: normal cognition Speech: speech normal Gait: normal gait Extrem General: normal to inspection, capillary refill normal, no pedal edema, no calf tenderness and normal gait Course Vital Signs Vital signs: Vital Signs Temperature 37.4 C 10/01/24 08:28 Pulse 82 10/01/24 08:28 Respiratory Rate 18 10/01/24 08:28 Blood Pressure 127/81 10/01/24 08:28 Pulse Oximetry 96 10/01/24 08:28 Temperature 37.4 C 10/01/24 08:28 Temperature Source Oral 10/01/24 08:28 Pulse 82 10/01/24 08:28 Respiratory Rate 18 10/01/24 08:28 Blood Pressure 127/81 10/01/24 08:28 Pulse Oximetry 96 10/01/24 08:28 Medical Decision Making Patient is a pleasant 69-year-old male past medical history significant for CAD status post CABG, bioprosthetic AVR, sinus node dysfunction, dual-lead Medtronic Brenda pacer was placed in 2021, PAD, diabetes, tobacco use, hyperlipidemia, sick sinus syndrome, PSVT, presenting today with chief complaint of intermittent episodes of shortness of breath and chest pain. Patient is currently asymptomatic. Patient reports that he had intermittent shortness of breath and mild chest discomfort always associated with activity for the past year but that over the past week or so the symptoms have gotten significantly worse. Developed a sore throat about 4 days ago for which she reports has been using throat spray available [id number]. He denies any other recent change in his medications. He did have his device interrogated in August and there was concern for new underlying atrial fibrillation. Patient has not suffered any syncopal episodes. Denies any GI upset. He denies any tahmina weakness, no pain that goes into his back. He does state that when the pain is maximal, such as when he is trying to do outdoor activities, the pain can radiate to both of his shoulders. He does report that this feels like when he has had previous MIs in the past. On exam, patient appears nontoxic. He is hemodynamically stable. His cardiac exam is concerning for a systolic murmur with a click but patient does report that he has had an aortic valve replacement and also reports that he has had some leakiness to this valve. Patient is afebrile. I do not appreciate any any lesions on his fingers or toes that would suggest endocarditis. He does not have any rashes. Abdomen is benign. Posterior oropharynx is slightly red but no acute exudates does not appear suspicious for strep. Lungs are clear. Patient did become short of breath with ambulation into the bed. His oxygen is okay but with large amount of talking does drop down to around 90 to 91% on room air. Has not dropped below 90% while I am in the room with the patient.. My primary concern at this time is ACS given the patient's history as well as her progressive symptoms. It does sound that he has been having this anginal symptoms for the past year with exertion but that over the past 4 days and things have been significantly worse. The only thing has been new aside from the baseline chest pain and shortness of breath with exertion, has been the sore throat. augments that he did have a Tmax of 102 ?F at home intermittently for the past few days. This does increase my concern for potential endocarditis although the patient does not have any other outward signs to suggest this infection. However, with his history of valvular replacement did consider this on the differential. ECG was reviewed by attending, concerning for some ST depressions as well as likely atrial fibrillation although the QRS complexes are fairly regular. She is comparing to previous. No evidence to suggest a STEMI. Patient is positive for COVID-19. Discussed this with the patient and his family. Given the patient's comorbidities, likely patient will require admission. Labs were also reviewed. No leukocytosis with the patient does have a lymphocytopenia which is not surprising given his diagnosis of COVID-19. Coags were obtained as I was concerned for ACS initially. CMP without significant abnormality elevated is a slight elevation of his AST and ALT. A LDH was elevated at 269. CRP elevated at 1.038. BNP elevated at 1278. I do not have a prior BNP. Given my initial concern for cardiac dysfunction, did order this for further evaluation the patient does not appear frankly volume overloaded at this point. After discussion with patient family, it was decided that admission would be appropriate, particular given the significant shortness of breath he has with any type of exertion over the past few days and his comorbidities. With the patient having a positive COVID-19 diagnosis, which does explain the other symptomatology he is expressing, I do not feel that further evaluation or acute management for more emergent pathology such as endocarditis is appropriate at this point. No elevation in his troponin or delta troponin. Consulted with hospitalist. Patient given the first dose of remdesivir. They agree to admission. All his questions and concerns were addressed and they are in agreement this plan. PFSH All Active Problems (Updated 10/01/24 @ 16:01 by APPLE Macias) CAD (coronary artery disease) (Chronic) Diabetes (Chronic) Hyperlipidemia (Acute) Sore throat (Acute) COVID-19 (Acute) Episodic lightheadedness (Acute) Sinus node dysfunction (Acute) Adenomatous colon polyp (Acute ~09/28/21) tubular adenoma stoiber Family history of colon cancer (Acute) Screening for colon cancer (Acute) Medical History Hx of myocardial infarction 2009 Peripheral arterial disease Right calf pain Diabetes Entrapment of common peroneal nerve Strain of right gastrocnemius muscle Primary osteoarthritis of right knee CAD (coronary artery disease) History of tobacco abuse Hyperlipidemia Type 2 diabetes mellitus Sick sinus syndrome Gout PSVT (paroxysmal supraventricular tachycardia) Obesity Bee sting allergy Surgical History Pacemaker Medtronic Gracia pacemaker inserted 05/19/11 with generator change 11/16/21 History of colonoscopy (~09/2021) History of open heart surgery S/P AVR 2008 Social History Smoking/Tobacco Use Status: Former Tobacco Use Quit Date: 02/20/06 Smoking risk assessment performed?: Yes Alcohol Intake: current Alcohol Intake frequency: a few times a week Drug use: Never Substance use type: does not use Housing: house Current gender identity: male Do you feel safe at home: Yes Do you feel safe in your relationship?: Yes PAWSS Have you Been Recently Intoxicated or Drunk Within the Last 30 days?: No Have you Ever Experienced Previous Episodes of Alcohol Withdrawal?: No Have you ever Experienced Withdrawal Seizures?: No Have you ever Experienced Delirium Tremens(DT)s?: No Have you ever undergone Alcohol Rehabilitation Treatment (i.e, inpt ot outpatient treatment programs)?: No Have you ever Experienced Blackouts?: No Have you ever Combined Alcohol with other Downers within the last 90 days?: No Have you ever Combined Alcohol with any other Substance of Abuse during the last 90 days?: No Positive Blood Alcohol level on Presentation? [PCS.BAL]: No Evidence of Increased Autonomic Activity (i.e. HR>120, tremor, sweating, agitation, nausea)?: No Result: 0
[2024-10-01] MEDS: Aspirin 81 MG CHEW 324 MG CH (08:46)
[2024-10-01 08:58] LABS: Abs Immature Grans 0.02 10^3/uL (0.0-0.06); HCT 41.0 % (40.0-50.0); HGB 14.4 g/dL (13.5-17.5); Immature Grans % 0.4 %; MCH 33.6 pg (27.0-33.0); MCHC 35.1 % (32.0-36.0); MCV 96 fL (80-95); MPV 9.6 fL (8.0-11.0); Platelet Count 175 10^3/uL (130-400); RBC 4.28 10^6/uL (4.36-5.78); RDW 13.3 % (11.8-14.1); RDW-SD 47.3 fL; WBC 5.54 10^3/uL (4.4-10.8)
[2024-10-01 09:17] LABS: INR 1.1 (0.9-1.1); PTT Activated 28.4 sec (20.6-30.2); Prothrombin Time 11.0 sec (9.1-11.1)
[2024-10-01 09:42] LABS: ALT 97 U/L (16-63); AST 79 U/L (15-37); Albumin 3.6 g/dL (3.4-5.0); Alkaline Phosphatase 66 U/L (46-116); Anion Gap 10.0 mmol/L (3-11); BUN 16 mg/dL (7-18); Bilirubin, Total 0.8 mg/dL (0.2-1.0); CO2 25.0 mmol/L (21.0-32.0); Calcium 8.7 mg/dL (8.5-10.1); Chloride 99 mmol/L (98-107); Estimated GFR 72.22 (mL/min/1.73m2); Glucose 236 mg/dL (74-106); Magnesium 1.8 mg/dL (1.8-2.4); NT-proBNP 1278 pg/mL (<300); Potassium 4.0 mmol/L (3.5-5.1); Sodium 134 mmol/L (136-145); Total Protein 8.3 g/dL (6.4-8.2); Troponin I 28 ng/L (<or=76)
[2024-10-01 10:11] LABS: C-Reactive Protein 1.03 mg/dL (<or=0.5); LDH 269 U/L (85-227)
[2024-10-01 10:25] LABS: Troponin I 28 ng/L (<or=76)
--- NOTE | 2024-10-01 11:52 | W.PC.ACHO ---
Registration Status: REG ER Primary Language: Preferred Language: Urdu ED Information & Data Chief Complaint Chest Pain 10/01/24 08:52 Triage Note Patient complaining sore 10/01/24 08:28 throat, fatigue, SOB/CP for 4 days. Medical / Surgical History (Last Reviewed 02/14/23 @ 17:30 by APPLE Greenberg) Hx of myocardial infarction Peripheral arterial disease Right calf pain Diabetes Entrapment of common peroneal nerve Strain of right gastrocnemius muscle Primary osteoarthritis of right knee CAD (coronary artery disease) History of tobacco abuse Hyperlipidemia Type 2 diabetes mellitus Sick sinus syndrome Gout PSVT (paroxysmal supraventricular tachycardia) Obesity Bee sting allergy (Last Reviewed 02/14/23 @ 17:30 by APPLE Greenberg) Pacemaker History of colonoscopy (~09/2021) History of open heart surgery S/P AVR Most Recent Vital Signs Temperature 37.4 C 10/01/24 08:28 Temperature Source Oral 10/01/24 08:28 Pulse 60 10/01/24 11:45 Pulse 61 10/01/24 11:45 Respiratory Rate 24 10/01/24 11:45 Respiratory Effort Short of Breath 10/01/24 08:54 Respiratory Depth Normal 10/01/24 08:54 Respiratory Pattern Normal 10/01/24 08:54 Blood Pressure 72/56 L 10/01/24 11:31 Blood Pressure Mean 61 10/01/24 11:45 Pulse Oximetry 95 10/01/24 11:45 Pain Level 6 10/01/24 08:54 Allergies venom-honey bee (bee venom (honey bee)) Allergy (Intermediate, Verified 10/01/24 08:35) Anaphylaxsis adhesive tape Adverse Reaction (Intermediate, Verified 10/01/24 08:35) Infection prednisone Adverse Reaction (Intermediate, Verified 10/01/24 08:35) Causes sugar spikes Precautions Isolation Standard precaution 10/01/24 08:35 IV IV Catheter Type [Left Peripheral IV Antecubital] IV Catheter Gauge [Left 18 Antecubital] Diagnostics 10/01/24 10/01/24 10/01/24 Range/Units 11:35 09:33 08:40 WBC 5.54 (4.4-10.8) 10^3/uL RBC 4.28 L (4.36-5.78) 10^6/uL Hgb 14.4 (13.5-17.5) g/dL Hct 41.0 (40.0-50.0) % MCV 96 H (80-95) fL MCH 33.6 H (27.0-33.0) pg MCHC 35.1 (32.0-36.0) % RDW 13.3 (11.8-14.1) % Plt Count 175 (130-400) 10^3/uL MPV 9.6 (8.0-11.0) fL Immature Gran % 0.4 % Neutrophils % 76.8 % Lymphocytes % 13.4 % Monocytes % 9.2 % Eosinophils % 0.0 % Basophils % 0.2 % Nucleated RBC % 0.0 (0.0-0.3) % Absolute Neutrophils 4.26 (1.2-6.7) 10^3/uL Absolute Lymphocytes 0.74 L (1.2-3.4) 10^3/uL Absolute Monocytes 0.51 (0.1-0.8) 10^3/uL Absolute Eosinophils 0.00 (0.0-0.7) 10^3/uL Absolute Basophils 0.01 (0.0-0.2) 10^3/uL PT 11.0 (9.1-11.1) sec INR 1.1 (0.9-1.1) APTT 28.4 (20.6-30.2) sec Sodium 134 L (136-145) mmol/L Potassium 4.0 (3.5-5.1) mmol/L Chloride 99 (98-107) mmol/L Carbon Dioxide 25.0 (21.0-32.0) mmol/L Anion Gap 10.0 (3-11) mmol/L BUN 16 (7-18) mg/dL Creatinine 1.1 (0.70-1.30) mg/dL Est GFR (CKD-EPI 2020) 72.22 (mL/min/1.73m2) Glucose 236 H (74-106) mg/dL Calcium 8.7 (8.5-10.1) mg/dL Magnesium 1.8 (1.8-2.4) mg/dL Ferritin Pending Total Bilirubin 0.8 (0.2-1.0) mg/dL AST 79 H (15-37) U/L ALT 97 H (16-63) U/L Alkaline Phosphatase 66 (46-116) U/L Lactate Dehydrogenase 269 H (85-227) U/L Troponin I Pending 28 28 (<or=76) ng/L C-Reactive Protein 1.03 H (<or=0.5) mg/dL NT-Pro-B Natriuret Pep 1278 H (<300) pg/mL Total Protein 8.3 H (6.4-8.2) g/dL Albumin 3.6 (3.4-5.0) g/dL 10/01/24 08:47 Group A Streptococcus Culture - Pending Tonsil - Not Specified [id number] Documentation Fingerstick Glucose Start: 10/01/24 10:47 Freq: AC & HS Status: Active Protocol: Activity Type Activity Date Activity User E-sign Co-sign Detail Recorded Client Recorded Date Recorded By Document 10/01/24 11:07 WILMER [id number] 10/01/24 11:07 WILMER POC Strep Test-ALIA(Rapid) Start: 10/01/24 08:36 Freq: .Rapid Strep Test Status: Active Protocol: Activity Type Activity Date Activity User E-sign Co-sign Detail Recorded Client Recorded Date Recorded By Document 10/01/24 08:59 N.THEC [email or web address] 10/01/24 08:59 N.THEC Intake and Output - 24 Hour Total 10/01/24 08:26 thru 10/01/24 11:35 Intake Total 110 Balance 110 Weight 94.9 kg Intake: IV 110 Falls Risk Assessment History of Falls No History 10/01/24 08:59 Contributing Factors No Factors 10/01/24 08:59 Ambulatory Aids Independent 10/01/24 08:59 Tubes/Lines W/no contributing factors 10/01/24 08:59 Gait Evaluation No gait disturbance 10/01/24 08:59 Cognition No cognitive impairment 10/01/24 08:59 Fall Total Score 10 10/01/24 08:59 Level of Risk Standard/Low Risk 10/01/24 08:59 v v v v v v v v v Sending and/or Receiving Nurses: Please use comment section below to note any information pertinent to the patient hand-off not included above. Information / Comments: AOx3, independent, VSS, on RA. C/o SOB, sore throat. CP is in pacer site, behind sternum with and w/o radiation which is not new - has been like that for at least months. on telemetry AV paced w/HR in 60th. LAC 18G. Report received from: ALIZE Joaquin
[2024-10-01 12:16] LABS: Ferritin 207 ng/mL (26-388)
--- NOTE | 2024-10-01 12:16 | W.INDIABCONS ---
Date of service: 10/01/24 Time of Service: 12:00 Diabetes Inpatient Consult Reason for Visit: diabetes education DESCRIPTION/ASSESSMENT: brief visit with anirudh prior to discharge yesterday (10/02) and declined outpatient follow up for diabetes education. gave my card with contact info should he desire referral and come in for recommendations on any dietary approaches for diabetes mgt. Time Spent in Nutritional Counseling and Treatment: 5 min
[2024-10-01] MEDS: Insulin Aspart 300 UNITS/3 ML PEN SC ×2 (12:47→17:03)
--- NOTE | 2024-10-01 12:59 | W.PM.HP.N ---
Date of service: 10/01/24 Time of Service: 13:00 Assessment and Plan Assessment and plan (1) COVID-19: Status: Acute Assessment and plan: No empirical antibiotics: patient's presentation is mild/moderate without signs of bacterial infection. Antiviral therapy: Given his age and comorbidities, start remdesivir (he is within 7-day window) based on renal/hepatic profile and potential drug interactions. Started in ED - will continue. Monitor for disease progression: Watch for hypoxemia or respiratory decline; escalate to immunomodulatory therapy (e.g. abatacept/infliximab or vilobelimab if critical) in consultation with infectious disease as needed. Supportive care: Continue oxygen PRN -- currently no O2 requirement (no steroids given), DVT prophylaxis, hydration, and symptomatic treatment as needed. Continue aspirin 81 mg daily for CAD and bioprosthetic valve. Do not start or stop aspirin based solely on COVID-19 diagnosis. Use acetaminophen?as the preferred antipyretic, agent if NSAIDs are needed, use the lowest effective dose to minimize common adverse effects? Ensure venous thromboembolism prophylaxis is in place during hospitalization - enoxaparin 40 mg sc daily. Inhalers prn, no nebs (2) Diabetes: Status: Chronic Assessment and plan: Hold metformin during hospitalization due to acute illness and potential renal function changes. Initiate sliding scale insulin for inpatient glycemic control. Continue monitoring blood glucose before meals and at bedtime. Maintain diabetic and heart-healthy diet. A1c added on and pending (last at [facility] 7.0) (3) CAD (coronary artery disease): Status: Chronic Assessment and plan: EKG - HR ~ 80, regular, New ST depression and inverted T waves in anterolateral leads, new from priors. No STEMI (per cardiology read) Continue home meds - metoprolol ER 50 mg BID ; continue aspirin 81 mg daily, (4) Hyperlipidemia: Status: Acute Assessment and plan: Tchol 132 triglycerides 155 LDL 50 HDL 50 from 2020 - checking w [facility] if there are recent results - pending at time of writing. Continue statin - atorvastatin 40 mg daily (5) Sore throat: Status: Acute Assessment and plan: C/O sore throat - strep neg Cepacol shanita prn; chlorasceptic spay prn. Salt water gargles prn History of Present Illness History of Present Illness Chief Complaint: Exertional chest discomfort and shortness of breath Consults Consult date: 10/01/24 Requesting physician: Toribio Mccarthy Narrative: This is a pleasant 69-year-old male with significant cardiac history including CAD s/p CABG and bioprosthetic AVR (2008), sinus node dysfunction, and dual-lead Medtronic Gracia pacemaker with pulse generator replacement on 11/16/2021. 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 Over the past year, he has experienced intermittent exertional chest discomfort and dyspnea, which have worsened in the last week. Today, the patient presented to the [facility] ED with a sore throat that began 2 days ago, associated with mild nasal congestion, intermittent dry cough, and low-grade subjective fevers. He denies chest pain, palpitations, orthopnea, paroxysmal nocturnal dyspnea, or leg swelling. He notes mild fatigue and decreased activity tolerance, which he attributes in part to recent high ambient temperatures. He was afebrile, hemodynamically stable, and oxygen saturation was maintained on room air. Initial laboratory evaluation was notable for positive SARS-CoV-2 PCR, WBC within normal limits, and normal troponin. Strep swab negative. Basic metabolic panel unremarkable. Chest X-ray showed no acute cardiopulmonary process. HEART score calculated at 3 (low risk). Patient remained clinically stable throughout ED stay with no evidence of hypoxia or hemodynamic compromise. He was hydrated orally, monitored on telemetry, and remained asymptomatic from a cardiac standpoint. Patient was started on Remdesyvir. Patient is placed on observation status, on telemetry, on the medical floor for monitoring of vital signs and oxygen requirement. Patient is in agreement with plan of care. Patient is a full code. Review of Systems Narrative: Constitutional: No fever, chills, or weight loss. HEENT: Mild sore throat ?4 days, no dysphagia, odynophagia, hoarseness, oral ulcers, or nasal congestion. No ear pain. Cardiac: Exertional chest pain, no pain at rest, no palpitations, syncope, or orthopnea. Respiratory: Shortness of breath on exertion, no cough or wheezing. GI: No nausea, vomiting, abdominal pain, or changes in bowel habits. Neuro: No dizziness, weakness, or vision changes. MSK: No new joint pain or swelling. Skin: No rash. PFSH All Active Problems (Updated 08/12/25 @ 15:19 by Brittany Hazel NP) CAD (coronary artery disease) (Chronic) Diabetes (Chronic) Hyperlipidemia (Acute) Sore throat (Acute) COVID-19 (Acute) Episodic lightheadedness (Acute) Sinus node dysfunction (Acute) Adenomatous colon polyp (Acute ~09/28/21) tubular adenoma stoiber Family history of colon cancer (Acute) Screening for colon cancer (Acute) Medical History Hx of myocardial infarction 2008 Peripheral arterial disease Right calf pain Diabetes Entrapment of common peroneal nerve Strain of right gastrocnemius muscle Primary osteoarthritis of right knee CAD (coronary artery disease) History of tobacco abuse Hyperlipidemia Type 2 diabetes mellitus Sick sinus syndrome Gout PSVT (paroxysmal supraventricular tachycardia) Obesity Bee sting allergy Surgical History Pacemaker Medtronic Gracia pacemaker inserted 05/19/11 with generator change 11/16/21 History of colonoscopy (~09/2021) History of open heart surgery S/P AVR 2008 Social History Smoking/Tobacco Use Status: Former Tobacco Use Quit Date: 02/20/06 Smoking risk assessment performed?: Yes Alcohol Intake: current Alcohol Intake frequency: a few times a week Drug use: Never Substance use type: does not use Housing: house Current gender identity: male Do you feel safe at home: Yes Do you feel safe in your relationship?: Yes Meds Allergies and Home Medications Allergies Allergy/AdvReac Type Severity Reaction Status Date / Time venom-honey bee (bee venom Allergy Intermediate Anaphylaxsi Verified 10/01/24 08:35 (honey bee)) s adhesive tape AdvReac Intermediate Infection Verified 10/01/24 08:35 prednisone AdvReac Intermediate Causes Verified 10/01/24 08:35 sugar spikes Home Medications ?Medication ?Instructions ?Recorded ?Confirmed ?Type Aspirin Low-Strength 81 mg 81 mg PO DAILY 09/27/12 10/01/24 History chewable tablet (aspirin) atorvastatin 40 mg tablet 40 mg PO DAILY 09/27/12 10/01/24 History allopurinol 100 mg tablet 200 mg PO DAILY 03/19/19 10/01/24 History amoxicillin 500 mg capsule 2,000 mg PO PRN 03/19/19 10/01/24 History blood sugar diagnostic #10 ea 08/12/20 10/01/24 History lancets #100 ea 08/12/20 10/01/24 History metoprolol succinate 100 mg 50 mg PO BID 03/08/23 10/01/24 History tablet,extended release 24 hr metformin 500 mg tablet,extended 1,000 mg PO BID 09/06/23 10/01/24 History release 24 hr Exam Narrative Exam Narrative: General: Well-appearing, no acute distress. HEENT: Mild pharyngeal erythema, no exudates. Neck: No JVD, no carotid bruits. Cardiac: Regular rate/rhythm, no murmurs, rubs, or gallops. Pacemaker site intact. Lungs: Clear bilaterally, no rales/wheezes. Abdomen: Soft, nontender, nondistended. Extremities: No edema, 2+ distal pulses. Neuro: Alert, oriented ?3, no focal deficits. Skin: Warm, dry, intact. Results Labs 10/01/24 08:40 10/01/24 08:40 Labs: Laboratory Results - last 24 hr 10/01/24 10/01/24 10/01/24 08:40 09:33 11:35 WBC 5.54 RBC 4.28 L Hgb 14.4 Hct 41.0 MCV 96 H MCH 33.6 H MCHC 35.1 RDW 13.3 Plt Count 175 MPV 9.6 Immature Gran % 0.4 Neutrophils % 76.8 Lymphocytes % 13.4 Monocytes % 9.2 Eosinophils % 0.0 Basophils % 0.2 Nucleated RBC % 0.0 Absolute Neutrophils 4.26 Absolute Lymphocytes 0.74 L Absolute Monocytes 0.51 Absolute Eosinophils 0.00 Absolute Basophils 0.01 PT 11.0 INR 1.1 APTT 28.4 Sodium 134 L Potassium 4.0 Chloride 99 Carbon Dioxide 25.0 Anion Gap 10.0 BUN 16 Creatinine 1.1 Est GFR (CKD-EPI 2020) 72.22 Glucose 236 H Calcium 8.7 Magnesium 1.8 Ferritin 207 Total Bilirubin 0.8 AST 79 H ALT 97 H Alkaline Phosphatase 66 Lactate Dehydrogenase 269 H Troponin I 28 28 Cancelled C-Reactive Protein 1.03 H NT-Pro-B Natriuret Pep 1278 H Total Protein 8.3 H Albumin 3.6 Last Vital Signs Temp 36.8 C 10/01/24 12:08 Pulse 62 10/01/24 12:08 Resp 14 10/01/24 12:08 BP 122/78 10/01/24 12:08 Pulse Ox 96 10/01/24 12:08 PAWSS Have you Been Recently Intoxicated or Drunk Within the Last 30 days?: No Have you Ever Experienced Previous Episodes of Alcohol Withdrawal?: No Have you ever Experienced Withdrawal Seizures?: No Have you ever Experienced Delirium Tremens(DT)s?: No Have you ever undergone Alcohol Rehabilitation Treatment (i.e, inpt ot outpatient treatment programs)?: No Have you ever Experienced Blackouts?: No Have you ever Combined Alcohol with other Downers within the last 90 days?: No Have you ever Combined Alcohol with any other Substance of Abuse during the last 90 days?: No Positive Blood Alcohol level on Presentation? [PCS.BAL]: No Evidence of Increased Autonomic Activity (i.e. HR>120, tremor, sweating, agitation, nausea)?: No Result: 0 Time Spent Time spent with Patient: 40-54 minutes Time was spent: preparing to see the patient(eg.review tests), obtaining and/or reviewing separately otained hiistory, ordering medications,tests, procedures, referring, communicating with other health attending ambulatory care, indepentently interpreting results, counseling the patient and care coordination
[2024-10-01] MEDS: Acetaminophen 325 MG TAB 650 MG PO (13:36)
[2024-10-01] MEDS: Benzocaine/Menthol LOZG 15/BOX 1 EACH SUC (13:37)
--- NOTE | 2024-10-01 14:34 | PHA.REVIEW2 ---
Pharmacy Admission Review Admission Clinical Review Admission Pharmacy Review: COVID-19 (Acute) venom-honey bee (bee venom (honey bee)) Allergy (Intermediate, Verified 10/01/24 08:35) Anaphylaxsis adhesive tape Adverse Reaction (Intermediate, Verified 10/01/24 08:35) Infection prednisone Adverse Reaction (Intermediate, Verified 10/01/24 08:35) Causes sugar spikes Resuscitation Status Full Code Height 5 ft 11 in Weight 94.12 kg Pharmacy Admission Review Renal Dosing Renal Dosing: BUN 16 mg/dL (7-18) 10/01/24 08:40 Creatinine 1.1 mg/dL (0.70-1.30) 10/01/24 08:40 Medications needing adjustments: Reviewed (CrCl 73.21 mL/min) List of meds needing interventions: Current medications are okay Anticoagulation Anticoagulation: Hgb 14.4 g/dL (13.5-17.5) 10/01/24 08:40 Hct 41.0 % (40.0-50.0) 10/01/24 08:40 Plt Count 175 10^3/uL (130-400) 10/01/24 08:40 INR 1.1 (0.9-1.1) 10/01/24 08:40 Creatinine 1.1 mg/dL (0.70-1.30) 10/01/24 08:40 DVT Prophylaxis: Reviewed Medications: Enoxaparin (40mg daily) Relevant Labs Relevant Labs: Sodium 134 mmol/L (136-145) L 10/01/24 08:40 Potassium 4.0 mmol/L (3.5-5.1) 10/01/24 08:40 Chloride 99 mmol/L (98-107) 10/01/24 08:40 Magnesium 1.8 mg/dL (1.8-2.4) 10/01/24 08:40 C-Reactive Protein 1.03 mg/dL (<or=0.5) H 10/01/24 09:33 Electrolytes, C-Reactive P, ESR: Reviewed (AST/ALT 79/97) DM Control DM Control: Glucose 236 mg/dL (74-106) H 10/01/24 08:40 Finger Stick Blood Glucose 176 1247 Finger Stick Blood Glucose 176 1152 Finger Stick Blood Glucose 176 1152 Finger Stick Blood Glucose 176 1130 Finger Stick Blood Glucose 174 1107 Finger Stick Blood Glucose 174 1106 Finger Stick Blood Glucose 174 1106 DM Control: Reviewed Insulin Dosing, Diabetic Medication: Has order for SS insulin Cardiac Review Cardiac Review: Troponin I Cancelled 10/01/24 11:35 NT-Pro-B Natriuret Pep 1278 pg/mL (<300) H 10/01/24 08:40 BP, HR, EF%: Reviewed (BP and HR WNL) List meds needing interventions: Has order for metoprolol 50mg XL BID QTc Review QTc: Reviewed (425 from 10/01/24) IV to PO Switch IV Medications: Reviewed (remdesivir) Home Meds Home Med List reviewed: Intervened Relevent Home Meds Not ordered & why?: amoxicillin (for dental procedures) and metformin Called nurse to verify with patient their home metoprolol dose. Home med list says 50mg XL BID but prescription from external fill history says 75mg QAM and 50mg QPM. Per nurse patient reports taking 50mg BID. Current Meds Current Medication Order Review: Intervened Comments: Added IV admission access order Patient is on remdesivir, day 1, for COVID-19 Pharmacy Antibiotic Review Relevant Labs: Relevant Labs 10/01/24 09:33 Lactate Dehydrogenase 269 H C-Reactive Protein 1.03 H
[2024-10-01 15:15] LABS: Hemoglobin A1C 6.7 % (<5.7)
[2024-10-01] MEDS: Chloraseptic Spray 117 ML BTL MM (16:08)
[2024-10-01 16:52] LABS: Lab Add On Test DONE
[2024-10-01] MEDS: Metoprolol CR 50 MG TABCR PO (21:06)
[2024-10-01] MEDS: Normal Saline Flush 10 ML SYR IVP (21:06)
[2024-10-01] MEDS: Melatonin 3 MG TAB 9 MG PO (22:04)
[2024-10-02 03:20] VITALS: BP 117/75; PULSE 66; RESP 16; TEMP 36.6; O2SAT 98
[2024-10-02 06:42] LABS: Abs Immature Grans 0.01 10^3/uL (0.0-0.06); HCT 39.7 % (40.0-50.0); HGB 13.7 g/dL (13.5-17.5); Immature Grans % 0.3 %; MCH 33.3 pg (27.0-33.0); MCHC 34.5 % (32.0-36.0); MCV 96 fL (80-95); MPV 9.6 fL (8.0-11.0); Platelet Count 163 10^3/uL (130-400); RBC 4.12 10^6/uL (4.36-5.78); RDW 13.2 % (11.8-14.1); RDW-SD 47.6 fL; WBC 3.98 10^3/uL (4.4-10.8)
[2024-10-02 07:12] LABS: Anion Gap 7.5 mmol/L (3-11); BUN 19 mg/dL (7-18); C-Reactive Protein 2.62 mg/dL (<or=0.5); CO2 25.5 mmol/L (21.0-32.0); Calcium 8.4 mg/dL (8.5-10.1); Chloride 103 mmol/L (98-107); Estimated GFR 91.88 (mL/min/1.73m2); Glucose 160 mg/dL (74-106); Magnesium 1.9 mg/dL (1.8-2.4); Potassium 3.8 mmol/L (3.5-5.1); Sodium 136 mmol/L (136-145)
[2024-10-02 08:13] VITALS: BP 118/71; PULSE 60; RESP 14; TEMP 36.6; O2SAT 93
[2024-10-02] MEDS: Enoxaparin 40 MG/0.4 ML SYR SC (08:14)
[2024-10-02] MEDS: Normal Saline Flush 10 ML SYR IVP (08:15)
[2024-10-02] MEDS: Atorvastatin 40 MG TAB PO (08:15)
[2024-10-02] MEDS: Metoprolol CR 50 MG TABCR PO (08:15)
[2024-10-02] MEDS: Aspirin 81 MG CHEW PO (08:15)
[2024-10-02] MEDS: Allopurinol 100 MG TAB 200 MG PO (08:15)
[2024-10-02 09:49] VITALS: O2SAT 93
[2024-10-02] MEDS: REMDESIVIR 100 MG in Normal Saline 250 ML 250 MG IVPB (10:07)
[2024-10-02 11:24] LABS: Calculated LDL 30 mg/dL (<100); Cholesterol 80 mg/dL (<200); HDL Cholesterol 42 mg/dL (>or=40); Triglyceride 41 mg/dL (<150)
--- NOTE | 2024-10-02 11:37 | PDOC.CMDIS ---
Date of service: 10/02/24 Time of Service: 12:30 LACE Index Scoring Tool Questions: Length of Stay (in days): 1 Was the patient admitted via the E.D.?: Yes E.D. Visits: 1 Answers: Total Score: 5 Risk of Readmission: Low Risk Care Management Discharge Plan Reason for Hospitalization: Covid Discharge Plan: Anatoliy is discharged home via private vehicle with family. Patient will follow up with his PCP and discharge plan of care as directed. No new services were ordered before discharge. Patient/Family Education Needs: Review discharge instructions and plan to follow up after discharge. Discuss ask me three.
[2024-10-02] MEDS: Insulin Aspart 300 UNITS/3 ML PEN SC (11:41)
--- NOTE | 2024-10-02 12:31 | PDOC.CMIN ---
Date of service: 10/02/24 Time of Service: 12:31 Care Management Initial Assmt Functional Status/Living Situation Town of Residence: [place] Employment Status: Retired Instrumental Activities of Daily Living (ADLs): Independent Medications Medication Management: No Issues/Barriers identified Advance Directives Advance Directives: Do you have an Advance Directive: Y 01/18/21, 14:10 AD On File at [facility]: Y 01/18/21, 14:10 Date Asked 05/21/24 05/21/24, 14:18 AD Date Reviewed 10/01/24 10/01/24, 08:33 COLST On File at [facility] COLST Date Scanned Code Status Resuscitation Status Full Code Insurance Coverage/Financial Issues Insurance: [employer] Medicare Replacement - [id number] Care Team Visit Care Team Role Provider Type Brittany Hazel NP MD [facility] STAFF PHYSICIAN Leobardo Tan MD Primary Care Provider NON-[facility] STAFF PHYSICIAN Denice Brand, [facility], [facility] Other Providers [employer] Drew Gomes RDN Other Providers [employer] APPLE Macias Emergency Provider PHYSICIANS ASSISTANT Ephraim Mendoza MD Admit Provider [facility] STAFF PHYSICIAN Attending Provider Discharge Anticipated Barriers to Discharge: None Identified Patient/Family Education Needs: Review discharge instructions, discuss Ask Me Three Social Determinants of Health Screening Social Determinants of health last assessed in clinic: 10/01/24 Will the Patient Participate in the Screening?: Yes Do you worry about having a steady place to live?: no Problems where you live: no known problems In the past 12 months, have you had to go without electric, gas, oil or water in your home?: no Has lack of transportation kept you from medical appointments or from doing things needed for daily living?: no Has anyone in your life made you feel unsafe or unsupported?: no How hard is it for you to pay for the very basics like food, housing, medical care, and heating? Would you say it is:: Not hard at all Do you want help finding or keeping work or a job?: I do not need or want help If for any reason you need help with day-to-day activities such as bathing, preparing meals, shopping, managing finances, etc., do you get the help you need?: I don?t need any help How often do you feel lonely or isolated from those around you?: Never Do you speak a language other than Latvian at home?: No Does the patient want assistance with any of the above?: No PFSH All Active Problems (Updated 10/01/24 @ 16:01 by APPLE Macias) CAD (coronary artery disease) (Chronic) Diabetes (Chronic) Hyperlipidemia (Acute) Sore throat (Acute) COVID-19 (Acute) Episodic lightheadedness (Acute) Sinus node dysfunction (Acute) Adenomatous colon polyp (Acute ~09/28/21) tubular adenoma stoiber Family history of colon cancer (Acute) Screening for colon cancer (Acute) Medical History Hx of myocardial infarction 2009 Peripheral arterial disease Right calf pain Diabetes Entrapment of common peroneal nerve Strain of right gastrocnemius muscle Primary osteoarthritis of right knee CAD (coronary artery disease) History of tobacco abuse Hyperlipidemia Type 2 diabetes mellitus Sick sinus syndrome Gout PSVT (paroxysmal supraventricular tachycardia) Obesity Bee sting allergy Surgical History Pacemaker Medtronic Gracia pacemaker inserted 05/19/11 with generator change 11/16/21 History of colonoscopy (~09/2021) History of open heart surgery S/P AVR 2008 Social History Smoking/Tobacco Use Status: Former Tobacco Use Quit Date: 02/20/06 Smoking risk assessment performed?: Yes Alcohol Intake: current Alcohol Intake frequency: a few times a week Drug use: Never Substance use type: does not use Housing: house Current gender identity: male Do you feel safe at home: Yes Do you feel safe in your relationship?: Yes
--- NOTE | 2024-10-02 12:38 | DSE_ITS ---
Date of service: 10/02/24 Time of Service: 12:39 DS: Diagnosis Discharge Diagnosis (1) COVID-19: Status: Acute (2) Diabetes: Status: Chronic (3) CAD (coronary artery disease): Status: Chronic (4) Hyperlipidemia: Status: Acute (5) Sore throat: Status: Acute Discharge Plan Disposition Patient Disposition: Home Condition: Improving Discharge Details Reason For Visit: Covid 19 Admit Date/Time: 10/01/24 10:37 Admit Provider: Ephraim Mendoza Attending Provider: Ephraim Mendoza Primary Care Provider: Leobardo Tan Hospital Course Hospital Course: Reason for Admission 69-year-old male with extensive cardiac history presented with sore throat ?2 days, mild nasal congestion, intermittent dry cough, and low-grade subjective fever. Found SARS-CoV-2 positive in ED. No hypoxia or hemodynamic instability at presentation. Admitted for monitoring and initiation of antiviral therapy given age and comorbidities. Pertinent Hospital Course * COVID-19: SARS-CoV-2 PCR positive. No bacterial coinfection; strep negative. No oxygen requirement during admission. Started on remdesivir in ED, completed 2 doses inpatient. No steroids indicated. Supportive care provided. * CAD: History of CABG, AVR, and pacemaker. EKG with new anterolateral ST depression/T wave inversion but no STEMI. Troponins negative. Continued aspirin 81 mg daily and metoprolol ER 50 mg BID. Remained chest pain?free during stay. * Hyperlipidemia: Continued atorvastatin 40 mg daily. * Type 2 Diabetes Mellitus: Metformin held during hospitalization due to acute illness. Managed with sliding scale insulin; glucose ranged up to 236 mg/dL. Continue Metformin on discharge. * Sore throat: Managed symptomatically with lozenges, chloraseptic spray, and saltwater gargles. * No episodes of hypoxemia, hemodynamic compromise, or arrhythmia on telemetry. * Patient remained stable and afebrile. Discharged back to baseline activity level. Significant Labs & Imaging * WBC: 5.54 ?10?/?L * Sodium: 136 mmol/L (mildly low) * Creatinine: 0.9 mg/dL * Glucose: 160 mg/dL (elevated) * AST: 79 U/L, ALT: 97 U/L (mildly elevated) * NT-proBNP: 1278 pg/mL (baseline elevated) * Troponin I: 28 ng/L ?2 (no dynamic change) * CXR: No acute cardiopulmonary process * Hemoglobin A1c: 6.7% * Total cholesterol: 80 mg/dL * LDL: 30 mg/dL * HDL: 42 mg/dL * Triglycerides: 41 mg/dL Excellent lipid control; diabetes well-managed. Condition at Discharge Stable, afebrile, no respiratory distress, oxygenating well on room air, chest pain?free. Discharge Medications Continue: * Aspirin 81 mg PO daily * Atorvastatin 40 mg PO daily * Allopurinol 200 mg PO daily * Metformin 1000 mg twice a day. * Metoprolol succinate 50 mg PO BID * Amoxicillin 2 g PO PRN for procedural prophylaxis * Blood sugar testing supplies * Lancets * Cepacol lozenges, chloraseptic spray PRN sore throat Follow-Up * Primary Care Provider: within 1 week * Cardiology ([facility] [place]): as scheduled October 16 for pacemaker follow up. * Monitor for recurrence of chest pain, worsening shortness of breath, hypoxia, or fever. Discharge Instructions * Rest, maintain adequate hydration, and follow a diabetic/heart-healthy diet. * Use acetaminophen as preferred antipyretic; avoid NSAIDs unless necessary. * Use nitroglycerin SL PRN chest pain and seek urgent care if unrelieved. * For COVID-19: Continue isolation as per current CDC guidelines. Wear a mask in public until cleared. Monitor for symptom progression. * Sore throat care: Saltwater gargles, lozenges, and chloraseptic spray PRN. Home Meds and New Rx's Prescriptions: Continued metoprolol succinate 100 mg tablet extended release 24 hr 50 mg PO BID Patient Comments: 09/07/22 at OV with [facility] 09/07/22 to decrease metoprolol to 50 mg AM and PM due to lightheadedness. RH (DME) blood sugar diagnostic Strip See Rx Instructions .ROUTE .MEDSUPPLY Qty: 10 Rx Instructions: As directed (DME[facility] See Rx Instructions .ROUTE .MEDSUPPLY Qty: 100 Rx Instructions: As directed atorvastatin 40 MG tablet 40 mg PO DAILY aspirin [Aspirin Low-Strength] 81 MG tablet,chewable 81 mg PO DAILY allopurinol 100 mg tablet 200 mg PO DAILY amoxicillin 500 mg capsule 2,000 mg PO PRN Rx Instructions: take 4 tablets 1 hour prior to dental procedures metformin 500 mg tablet extended release 24 hr 1,000 mg PO BID Discharge Instructions Instructions: COVID-19 in adults - Discharge instructions Additional Instructions: Diagnosis: COVID-19 infection with sore throat Treatment received in hospital: Two doses of remdesivir, supportive care, fever control, hydration. What to Expect at Home: * You may continue to have mild symptoms such as cough, fatigue, sore throat, or congestion for several days to weeks. * Gradual improvement is expected, but contact your healthcare provider if symptoms worsen. Self-Care: * Rest and drink plenty of fluids. * Use acetaminophen (Tylenol) for fever or discomfort as directed. * Saltwater gargles, warm tea with honey, or throat lozenges may help relieve sore throat. * Eat a healthy, balanced diet to support recovery. Isolation: * Continue home isolation until at least 5 days after symptom onset AND you are fever-free for 24 hours without fever medicine, with symptoms improving. * Wear a well-fitting mask around others for a full 10 days after symptoms began. Warning Signs ? Seek Care Immediately: * Worsening shortness of breath or trouble breathing. * Chest pain or pressure. * New confusion or difficulty waking up. * Lips, face, or fingers turning blue or weston. * High fever not responding to medication. Follow-Up: * Contact your primary care provider within 1 week, or sooner if you have questions or concerns. * Continue other prescribed medications as directed. Prevent Spreading COVID-19: * Wash hands often, cover coughs/sneezes, and avoid close contact with high-risk individuals until you are fully recovered. Referrals: Leobardo Tan MD [Primary Care Provider, Medicine] Referral Note: 1 week s/p inpt adm for Covid 19. Activity:: Activity as Tolerated Equipment/Supplies:: No Equipment Needed Diet:: As Tolerated Discharge Orders Discharge Orders: Discharge Order (Routine); Ordered 10/02/24 Ordered By: Brittany Hazel Discharge Data Discharge Date/Time-TO BE ENTERED AT DEPARTURE: 10/02/24 13:22 DS: Summary Time Spent with Patient providing and/or coordinating discharge services: Greater than 30 minutes Status at Discharge Functional status at discharge: independent ambulation Overall status at discharge: patient is back to baseline Mental Status: mental status grossly normal Speech and Movement: speech and movement normal Mood: congruent mood Affect: normal affect Exam Narrative Exam Narrative: General: Well-appearing, no acute distress, pleasant, speaks in full sentences. HEENT: Continued mild pharyngeal erythema, no exudates. Neck: No JVD, no carotid bruits. Cardiac: Regular rate/rhythm, no murmurs, rubs, or gallops. Pacemaker site intact. Lungs: Clear bilaterally, no rales/wheezes. Abdomen: Soft, nontender, nondistended. Extremities: No edema, 2+ distal pulses. Neuro: Alert, oriented ?3, no focal deficits. Skin: Warm, dry, intact. Psych Mental Status: mental status grossly normal Speech and Movement: speech and movement normal Mood: congruent mood Affect: normal affect DS: Data Vitals/I&O Vitals and I&O: Vital Signs Temperature 36.6 C 10/02/24 08:13 Temperature Source Skin 10/02/24 08:13 Pulse 60 10/02/24 08:13 Pulse Rhythm Regular 10/01/24 13:09 Pulse 61 10/01/24 11:45 Respiratory Rate 14 10/02/24 08:13 Respiratory Effort Normal, Non-Labored 10/01/24 13:09 Respiratory Depth Normal 10/01/24 13:09 Respiratory Pattern Normal 10/01/24 13:09 Blood Pressure 118/71 10/02/24 08:13 Blood Pressure Mean 86 10/02/24 08:13 Pulse Oximetry 93 10/02/24 09:49 Oxygen Delivery Method Room Air 10/02/24 09:49 Oxygen Flow Rate 0 10/02/24 09:49 Pain Level 0 10/02/24 09:49 Intake & Output 10/01/24 10/02/24 10/02/24 23:59 11:59 23:59 Intake Total 460 / 570 300 / 300 Balance 460 / 570 300 / 300 Weight 94.12 kg Intake: Oral 460 / 460 300 / 300 Other: Urine Color Yellow Yellow Urine Appearance Clear Clear Comment reported Data Completed and Pending Labs on day of discharge: Labs from last 24 hours 10/02/24 10/01/24 06:30 08:40 WBC 3.98 L RBC 4.12 L Hgb 13.7 Hct 39.7 L MCV 96 H MCH 33.3 H MCHC 34.5 RDW 13.2 Plt Count 163 MPV 9.6 Immature Gran % 0.3 Neutrophils % 51.1 Lymphocytes % 36.7 Monocytes % 11.1 Eosinophils % 0.5 Basophils % 0.3 Nucleated RBC % 0.0 Absolute Neutrophils 2.03 Absolute Lymphocytes 1.46 Absolute Monocytes 0.44 Absolute Eosinophils 0.02 Absolute Basophils 0.01 Sodium 136 Potassium 3.8 Chloride 103 Carbon Dioxide 25.5 Anion Gap 7.5 BUN 19 H Creatinine 0.9 Est GFR (CKD-EPI 2020) 91.88 Glucose 160 H Hemoglobin A1c 6.7 H Calcium 8.4 L Magnesium 1.9 C-Reactive Protein 2.62 H Triglycerides 41 Total Cholesterol 80 LDL Cholesterol, Calc 30 HDL Cholesterol 42 Add-On Test Request DONE 10/01/24 08:47 Tonsil - Not Specified Group A Streptococcus Culture - Pending Preliminary micro results at discharge 10/01/24 08:47 Tonsil - Not Specified Group A Streptococcus Culture - Pending PFSH All Active Problems (Updated 10/01/24 @ 16:01 by APPLE Macias) CAD (coronary artery disease) (Chronic) Diabetes (Chronic) Hyperlipidemia (Acute) Sore throat (Acute) COVID-19 (Acute) Episodic lightheadedness (Acute) Sinus node dysfunction (Acute) Adenomatous colon polyp (Acute ~09/28/21) tubular adenoma stoiber Family history of colon cancer (Acute) Screening for colon cancer (Acute) Medical History Hx of myocardial infarction 2009 Peripheral arterial disease Right calf pain Diabetes Entrapment of common peroneal nerve Strain of right gastrocnemius muscle Primary osteoarthritis of right knee CAD (coronary artery disease) History of tobacco abuse Hyperlipidemia Type 2 diabetes mellitus Sick sinus syndrome Gout PSVT (paroxysmal supraventricular tachycardia) Obesity Bee sting allergy Surgical History Pacemaker Med[employer]onic Gracia pacemaker inserted 05/19/11 with generator change 11/16/21 History of colonoscopy (~09/2021) History of open heart surgery S/P AVR 2008 Social History Smoking/Tobacco Use Status: Former Tobacco Use Quit Date: 02/20/06 Smoking risk assessment performed?: Yes Alcohol Intake: current Alcohol Intake frequency: a few times a week Drug use: Never Substance use type: does not use Housing: house Current gender identity: male Do you feel safe at home: Yes Do you feel safe in your relationship?: Yes Time Spent with Patient Time Spent with Patient: <45 minutes Time was spent: preparing to see the patient(eg.review tests), ordering medications,tests, procedures, referring, communicating with other health child care provider, indepentently interpreting results, counseling the patient and care coordination
== END 2024-10-02 13:22 | disposition home or self-care (01) ==
LOC: ER 09:46 → MS 12:00
PROVIDERS: Admitting Provider Family Medicine; Emergency Provider Physician Assistant; PCP Family Medicine; Responsible Provider Nurse Practitioner Family; Visit Provider Family Medicine
DX: U07.1 COVID-19 (principal); E11.9 Type 2 diabetes mellitus without complications; I25.10 Atherosclerotic heart disease of native coronary artery without angina pectoris; E78.5 Hyperlipidemia, unspecified; J02.9 Acute pharyngitis, unspecified; R94.31 Abnormal electrocardiogram [ECG] [EKG]; Z79.84 Long term (current) use of oral hypoglycemic drugs; Z95.3 Presence of xenogenic heart valve; R06.02 Shortness of breath; Z95.1 Presence of aortocoronary bypass graft; Z95.0 Presence of cardiac pacemaker; R42 Dizziness and giddiness; I47.10 Supraventricular tachycardia, unspecified; E66.9 Obesity, unspecified; Z87.891 Personal history of nicotine dependence; I49.5 Sick sinus syndrome
CPT/HCPCS: 00123; 36415; 36416; 80048; 80053; 80061; 82962; 87880; 93005; 96365; 96366; 96372; 99285; J1650; 71046; 82728; 83036; 83615; 83735; 83880; 84484; 85025; 85610; 85730; 86140; 87081; 93010; 99222; 99239; G0378; J0248; J1815

== ENCOUNTER 2024-11-20 15:56 | Outpatient (REF) | payer MEDICARE, SELFPAY ==
[2024-11-20 16:02] LABS: COMMENT (LAB VIEW ONLY) 31.81 mg/dL; Microalb ug/mg Crea 84.3 ug/mg Cr
== END 2024-11-20 15:57 | disposition home or self-care (01) ==
LOC: NCHCN 15:56
PROVIDERS: PCP Family Medicine; Visit Provider Family Medicine
DX: E11.9 Type 2 diabetes mellitus without complications (principal)
CPT/HCPCS: 82043; 82570